=== PATIENT | male | born 1940 | race Caucasian/White ===

== ENCOUNTER 2021-12-25 00:36 | Inpatient (IN) | payer MEDICARE, SELFPAY ==
[2021-12-24 22:10] VITALS: BP 151/66; PULSE 84; RESP 18; TEMP 36.7; O2SAT 98
[2021-12-24 22:15] VITALS: BP 151/66; PULSE 84; RESP 18; TEMP 36.7; O2SAT 98; BMI 32.6
--- OUTSIDE RECORDS SUMMARY | 2021-12-24 22:33 | XMS_ITS | CCD ---
:1940 Author Care Team Providers Name Role Phone MONROE SHRESTHA Attending Physician Unavailable Vital Signs Unknown or Not Available. Allergies Allergy Code Allergy Type Reaction Status OXYCODONE 7804 Drug allergy URINARY RETENTION; Active DIFFICULTY URINATING No Known Environmental 0 No known environmental Active Allergies allergies No Known Food Allergies 0 No known food allergies Active Procedures Unknown or Not Available. History of Immunizations Immunization Code Date Hep A, adult 52 01/12/1999 Hep A, adult 52 09/13/1999 pneumococcal polysaccharide PPV23 33 2010 zoster live 121 11/28/2013 influenza, unspecified formulation 88 01/21 Pneumococcal conjugate PCV 13 133 03/09/2014 Tdap 115 12/07/2014 Tdap 115 12/07/2014 influenza, injectable, quadrivalent 158 12/0 05/2014 Influenza, high dose seasonal 135 01/18/2016 Influenza, high dose seasonal 135 01/05/2017 Influenza, high dose seasonal 135 01/30/2018 Influenza, high dose seasonal 135 02/03/2019 Influenza, high dose seasonal 135 01/27/2020 influenza, high-dose, quadrivalent 197 01/26 COVID-19, mRNA, LNP-S, PF, 100 mcg/0.5mL dose or 50 mcg/0.25 mL dose 207 05/24/2020 COVID-19, mRNA, LNP-S, PF, 100 mcg/0.5mL dose or 50 mcg/0.25 mL dose 207 06/21/2020 COVID-19, mRNA, LNP-S, PF, 100 mcg/0.5mL dose or 50 mcg/0.25 mL dose 207 02/24/2021 influenza, high-dose, quadrivalent 197 03/28 pneumococcal polysaccharide PPV23 33 Unknow n Influenza, seasonal, injectable 141 Unknown Problems Problem Code Start Date Resolved Trevor
--- OUTSIDE RECORDS SUMMARY | 2021-12-24 22:33 | XMS_ITS | CCD ---
:1940 Author Care Team Providers Name Role Phone ISABELLE LEIJA Attending Physician Unavailable Vital Signs Unknown or Not Available. Allergies Allergy Code Allergy Type Reaction Status OXYCODONE 7804 Drug allergy URINARY RETENTION; Active DIFFICULTY URINATING No Known Environmental 0 No known environmental Active Allergies allergies No Known Food Allergies 0 No known food allergies Active Procedures Procedure Code Procedure Type Date INJECT SACROILIAC JOINT 22650 CPT 01/25/20 Introduction of Anti-inflammatory into [id number] ICD-10 PC S 01/24/2021 Peripheral Nerves and Plexi, Percutaneous Approach History of Immunizations Immunization Code Date Hep [...] mcg/0.5mL dose or 50 mcg/0.25 mL dose 05/24/2020 COVID-19, mRNA, LNP-S, PF, 100 mcg/0.5mL dose or 50 mcg/0.25 mL dose 06/21/2020 COVID-19, mRNA, LNP-S, PF, 100 mcg/0.5mL dose or
--- OUTSIDE RECORDS SUMMARY | 2021-12-24 22:33 | XMS_ITS | CCD ---
:1940 Author Care Team Providers Name Role Phone FABIANLINMARTINE Attending Physician Unavailable Vital Signs Unknown or [...] mcg/0.5mL dose or 50 mcg/0.25 mL dose 02/24/2021 influenza, high-dose, quadrivalent 197 03/28 pneumococcal polysaccharide PPV23 33 Unknow n Influenza, seasonal, injectable 141 Unknown Problems Problem Code Start Date Resolved Trevor
--- OUTSIDE RECORDS SUMMARY | 2021-12-24 22:33 | XMS_ITS | CCD ---
:1940 Author Care Team Providers Name Role Phone ANTONELLA QUINN Attending Physician Unavailable ANTONELLA QUINN Er Physician 1 Unavailable CODY SUTTON (Secondary) Physician Unavailab le Vital Signs Unknown or Not Available. Allergies [...]
--- NOTE | 2021-12-24 22:34 | ADMGEN ---
This patient, Sina Mckeon, was admitted to [facility] Surg Room 327-01. Patient/family oriented to hospital policies and general routines including ID bracelet, bed and alarms, visiting hours, pain management, procedures, bathroom and other care routines, personal items, smoking policy, room service/diet, and visiting hours. Information on how to activate the Rapid Response Team has been discussed. Patient/Family are encouraged to report perceived risks to care and to ask questions if they do not understand what they are told or what they should do.
--- OUTSIDE RECORDS SUMMARY | 2021-12-24 22:34 | XMS_ITS | CCD ---
:1940 Author Care Team Providers Name Role Phone LUIS TAO Attending Physician Unavailable ANTONELLA QUINN Er Physician 1 Unavailable CODY SUTTON (Secondary) Physician Unavailab le Vital Signs Vital Sign Value Unit Date/Time Recent/Initial? BMI (Body Mass Index) 36.34 kg/m^2 07/26/2021 22:00 In itial VS Weight Measured 225.12 lbs 07/26/2021 22:00 Initial VS Height 66 in 07/26/2021 22:00 Initial VS BSA (Body Surface Area) 2.18 m^2 07/26/2021 22:00 Initial VS BP Systolic 138 mmHg 07/26/2021 22:00 Initial VS BP Diastolic 60 mmHg 07/26/2021 22:00 Initial VS Respiratory Rate 18 bpm 07/26/2021 22:00 Initial VS Heart Rate 77 bpm 07/26/2021 22:00 Initial VS O2 % BldC Oximetry 93 % 07/26/2021 22:00 Initi al VS Body Temperature 97.7 degrees 07/26/2021 22:00 Initial VS BP Systolic 140 mmHg 07/29/2021 10:11 Most Recent VS BP Diastolic 67 mmHg 07/29/2021 10:11 Most Recent VS Respiratory Rate 18 bpm 07/29/2021 10:11 Most Re cent VS Heart Rate 73 bpm 07/29/2021 10:11 Most Recent VS O2 % BldC Oximetry 95 % 07/29/2021 10:11 Most Recent VS Body Temperature 97.8 degrees 07/29/2021 10:11 Most Re cent VS Allergies Allergy Code Allergy Type Reaction Status OXYCODONE 7804 Drug allergy URINARY RETENTION; Active DIFFICULTY URINATING No Known Environmental 0 No known environmental Active Allergies allergies No Known Food Allergies 0 No known food allergies Active Procedures Procedure Code Procedure Type Date CBC W DIFF 9292457 SNOMED CT 07/26/2021 COMPREHENSIVE METABOLIC PANEL 376348683033683 SNOMED CT CULTURE BLOOD-PERIPHERAL 517463856 SNOMED CT 022 CULTURE BLOOD-PERIPHERAL 640869018 [facility] CT 022
--- OUTSIDE RECORDS SUMMARY | 2021-12-24 22:34 | XMS_ITS | CCD ---
:1940 Author Care Team Providers Name Role Phone VANNESSA RANGEL Attending Physician Unavailable Vital Signs Unknown or [...] Unknown Problems Problem Code Start Date Resolved Date
--- OUTSIDE RECORDS SUMMARY | 2021-12-24 22:34 | XMS_ITS | CCD ---
:1940 Author Care Team Providers Name Role Phone DWAINE SIDDIQI Attending Physician Unavailable Vital Signs Unknown or [...]
--- OUTSIDE RECORDS SUMMARY | 2021-12-24 22:34 | XMS_ITS | CCD ---
:1940 Author Care Team Providers Name Role Phone CODY SUTTON Attending Physician Unavailable Vital Signs Unknown or Not Available. Allergies Allergy Code Allergy Type Reaction Status OXYCODONE 7804 Drug allergy URINARY RETENTION; Active DIFFICULTY URINATING No Known Environmental 0 No known environmental Active Allergies allergies No Known Food Allergies 0 No known food allergies Active Procedures Procedure Code Procedure Type Date CHEST [address] 06/15/2021 History of Immunizations Immunization Code Date Hep [...] pneumococcal polysaccharide PPV23 33 Unknow n Influenza, seasonal
--- OUTSIDE RECORDS SUMMARY | 2021-12-24 22:34 | XMS_ITS | CCD ---
[...] Code Procedure Type Date CHEST [id number] 07/07/2021 History of Immunizations Immunization Code Date Hep [...] pneumococcal polysaccharide PPV23 33 Unknow n Influenza, seasona
--- OUTSIDE RECORDS SUMMARY | 2021-12-24 22:34 | XMS_ITS | CCD ---
:1940 Author Care Team Providers Name Role Phone LILIA RIVERO Attending Physician Unavailable Vital Signs Unknown or [...]
--- OUTSIDE RECORDS SUMMARY | 2021-12-24 22:34 | XMS_ITS | CCD ---
:1940 Author Care Team Providers Name Role Phone ANANTH BERGER Attending Physician Unavailable Vital Signs Unknown or [...]
--- OUTSIDE RECORDS SUMMARY | 2021-12-24 22:34 | XMS_ITS | CCD ---
:1940 Author Care Team Providers Name Role Phone ANTONELLA QUINN Attending Physician Unavailable CODY SUTTON (Secondary) Physician Unavailab le [...]
--- OUTSIDE RECORDS SUMMARY | 2021-12-24 22:34 | XMS_ITS | CCD ---
:1940 Author Care Team Providers Name Role Phone LUIS TAO Attending Physician Unavailable Vital Signs Vital Sign Value Unit Date/Time Recent/Initial? BMI (Body Mass Index) 39.96 kg/m^2 07/08/2021 15:27 In itial VS Weight Measured 247.56 lbs 07/08/2021 15:27 Initial VS Height 66 in 07/08/2021 15:27 Initial VS BSA (Body Surface Area) 2.29 m^2 07/08/2021 15:27 Initial VS BP Systolic 148 mmHg 07/08/2021 19:19 Initial VS BP Diastolic 72 mmHg 07/08/2021 19:19 Initial VS Respiratory Rate 20 bpm 07/08/2021 19:19 Initial VS Heart Rate 98 bpm 07/08/2021 19:19 Initial VS O2 % BldC Oximetry 96 % 07/08/2021 19:19 Initi al VS Body Temperature 98.4 degrees 07/08/2021 19:19 Initial VS BP Systolic 152 mmHg 07/09/2021 12:03 Most Recent VS BP Diastolic 76 mmHg 07/09/2021 12:03 Most Recent VS Respiratory Rate 18 bpm 07/09/2021 12:03 Most Re cent VS Heart Rate 83 bpm 07/09/2021 12:03 Most Recent VS O2 % BldC Oximetry 93 % 07/09/2021 12:03 Most Recent VS Body Temperature 98 degrees 07/09/2021 12:03 Most Re cent VS Allergies Allergy Code Allergy Type Reaction Status OXYCODONE 7804 Drug allergy URINARY RETENTION; Active DIFFICULTY URINATING No Known Environmental 0 No known environmental Active Allergies allergies No Known Food Allergies 0 No known food allergies Active Procedures Procedure Code Procedure Type Date PRP I/YAMILE INIT REDUC >5 YR 24905 CPT 06/15 ANESTH REPAIR OF HERNIA 77482 CPT 07/09/19 22 Supplement Right Inguinal Region with Synthetic [id number] ICD-10 PCS 07/08/2021 Substitute, Open Approach History of Immunizations Immunization Code Date Hep A, adult
--- OUTSIDE RECORDS SUMMARY | 2021-12-24 22:34 | XMS_ITS | CCD ---
:1940 Author Care Team Providers Name Role Phone JANES CEDILLO Attending Physician Unavailable Vital Signs Unknown or [...]
--- OUTSIDE RECORDS SUMMARY | 2021-12-24 22:35 | XMS_ITS | CCD ---
[...] Code Procedure Type Date CBC W DIFF 4606473 SNOMED CT 11/27/2021 COMPREHENSIVE METABOLIC PANEL [id number] SNOMED CT CULTURE BLOOD-PERIPHERAL 286155386 SNOMED CT 022 CULTURE BLOOD-PERIPHERAL 481745342 SNOMED CT 022 History of Immunizations Immunization Code Date Hep [...]
--- OUTSIDE RECORDS SUMMARY | 2021-12-24 22:35 | XMS_ITS | CCD ---
:1940 Author Care Team Providers Name Role Phone LOU PRINGLE Attending Physician Unavailable Vital Signs Unknown or [...]
--- OUTSIDE RECORDS SUMMARY | 2021-12-24 22:35 | XMS_ITS | CCD ---
:1940 Author Care Team Providers Name Role Phone TEGAN TITUS Attending Physician Unavailable TEGAN TITUS Er Physician 1 Unavailable CODY SUTTON (Secondary) [...]
--- OUTSIDE RECORDS SUMMARY | 2021-12-24 22:35 | XMS_ITS | CCD ---
:1940 Author Care Team Providers Name Role Phone VANE DALY Attending Physician Unavailable VANE DALY Er Physician 1 Unavailable CODY SUTTON (Secondary) [...]
--- OUTSIDE RECORDS SUMMARY | 2021-12-24 22:36 | XMS_ITS | CCD ---
:1940 Author Care Team Providers Name Role Phone ISABELLE LEIJA Attending Physician Unavailable ISABELLE LEIJA Rounding (Secondary) Physician Unavailab le Vital Signs Unknown [...]
--- OUTSIDE RECORDS SUMMARY | 2021-12-24 22:36 | XMS_ITS | CCD ---
:1940 Author Care Team Providers Name Role Phone CODY SUTTON Attending Physician Unavailable CODY SUTTON (Secondary) Physician Unavailab le Vital Signs Vital Sign Value Unit Date/Time Recent/Initial? BMI (Body Mass Index) 34.24 kg/m^2 12/13/2020 11:36 In itial VS Weight Measured 212 lbs 12/13/2020 11:36 Initial VS Height 65.98 in 12/13/2020 11:36 Initial VS BSA (Body Surface Area) 2.12 m^2 12/13/2020 11:36 Initial VS BP Systolic 136 mmHg 12/13/2020 11:36 Initial VS BP Diastolic 82 mmHg 12/13/2020 11:36 Initial VS Respiratory Rate 18 bpm 12/13/2020 11:36 Initial VS Heart Rate 87 bpm 12/13/2020 11:36 Initial VS O2 % BldC Oximetry 96 % 12/13/2020 11:36 Initi al VS Body Temperature 98 degrees 12/13/2020 11:36 Initial VS Allergies Allergy Code Allergy Type Reaction [...]
--- OUTSIDE RECORDS SUMMARY | 2021-12-24 22:36 | XMS_ITS | CCD ---
:1940 Author Care Team Providers Name Role Phone COYD SUTTON Attending Physician Unavailable CODY SUTTON (Secondary) [...]
--- OUTSIDE RECORDS SUMMARY | 2021-12-24 22:36 | XMS_ITS | CCD ---
:1940 Author Care Team Providers Name Role Phone KATARZYNA KIRAN Attending Physician Unavailable Vital Signs Unknown or [...]
--- OUTSIDE RECORDS SUMMARY | 2021-12-24 22:36 | XMS_ITS | CCD ---
:1940 Author Care Team Providers Name Role Phone CODY SUTTON Attending Physician Unavailable CODY SUTTON (Secondary) Physician Unavailab le Vital Signs Vital Sign Value Unit Date/Time Recent/Initial? BP Systolic 146 mmHg 04/13/2021 10:31 Initial VS BP Diastolic 66 mmHg 04/13/2021 10:31 Initial VS Respiratory Rate 18 bpm 04/13/2021 10:31 Initial VS Heart Rate 70 bpm 04/13/2021 10:31 Initial VS O2 % BldC Oximetry 95 % 04/13/2021 10:31 Initi al VS Body Temperature 99.1 degrees 04/13/2021 10:31 Initial VS Allergies Allergy Code Allergy Type [...] 197 01/26 COVID-19, mRNA, LNP-S, PF, 100 mcg/0
--- OUTSIDE RECORDS SUMMARY | 2021-12-24 22:36 | XMS_ITS | CCD ---
:1940 Author Care Team Providers Name Role Phone ISABELLE LEIJA Attending Physician Unavailable ISABELLE LEIJA Rounding (Secondary) Physician Unavailab le Vital Signs Vital Sign Value Unit Date/Time Recent/Initial? BMI (Body Mass Index) 33.89 kg/m^2 02/08/2021 11:03 In itial VS Weight Measured 210 lbs 02/08/2021 11:03 Initial VS Height 66 in 02/08/2021 11:03 Initial VS BSA (Body Surface Area) 2.11 m^2 02/08/2021 11:03 Initial VS BP Systolic 120 mmHg 02/08/2021 11:03 Initial VS BP Diastolic 60 mmHg 02/08/2021 11:03 Initial VS Respiratory Rate 16 bpm 02/08/2021 11:03 Initial VS Heart Rate 68 bpm 02/08/2021 11:03 Initial VS O2 % BldC Oximetry 96 % 02/08/2021 11:03 Initi al VS Body Temperature 96.4 degrees 02/08/2021 11:03 Initial VS Allergies Allergy Code Allergy Type [...] Influenza, high dose seasonal 135 01/05/2017 Influenza, hig
--- OUTSIDE RECORDS SUMMARY | 2021-12-24 22:36 | XMS_ITS | CCD ---
:1940 Author Care Team Providers Name Role Phone ISABELLE LEIJA Attending Physician Unavailable ISABELLE LEIJA Rounding (Secondary) Physician Unavailab le Vital Signs Vital Sign Value Unit Date/Time Recent/Initial? BMI (Body Mass Index) 34.86 kg/m^2 01/17/2021 08:52 In itial VS Weight Measured 216 lbs 01/17/2021 08:52 Initial VS Height 66 in 01/17/2021 08:52 Initial VS BSA (Body Surface Area) 2.14 m^2 01/17/2021 08:52 Initial VS BP Systolic 152 mmHg 01/17/2021 08:52 Initial VS BP Diastolic 60 mmHg 01/17/2021 08:52 Initial VS Respiratory Rate 20 bpm 01/17/2021 08:52 Initial VS Heart Rate 93 bpm 01/17/2021 08:52 Initial VS O2 % BldC Oximetry 93 % 01/17/2021 08:52 Initi al VS Body Temperature 97.5 degrees 01/17/2021 08:52 Initial VS Allergies Allergy Code Allergy Type [...]
--- OUTSIDE RECORDS SUMMARY | 2021-12-24 22:36 | XMS_ITS | CCD ---
:1940 Author Care Team Providers Name Role Phone CODY SUTTON Attending Physician Unavailable CODY SUTTON (Secondary) Physician Unavailab le Vital Signs Vital Sign Value Unit Date/Time Recent/Initial? BMI (Body Mass Index) 38.29 kg/m^2 06/15/2021 11:44 In itial VS Weight Measured 230.12 lbs 06/15/2021 11:44 Initial VS Height 65 in 06/15/2021 11:44 Initial VS BSA (Body Surface Area) 2.19 m^2 06/15/2021 11:44 Initial VS BP Systolic 148 mmHg 06/15/2021 11:44 Initial VS BP Diastolic 70 mmHg 06/15/2021 11:44 Initial VS Respiratory Rate 22 bpm 06/15/2021 11:44 Initial VS Heart Rate 72 bpm 06/15/2021 11:44 Initial VS O2 % BldC Oximetry 93 % 06/15/2021 11:44 Initi al VS Body Temperature 97.7 degrees 06/15/2021 11:44 Initial VS Allergies Allergy Code Allergy Type [...]
--- OUTSIDE RECORDS SUMMARY | 2021-12-24 22:36 | XMS_ITS | CCD ---
:1940 Author Care Team Providers Name Role Phone CODY SUTTON Attending Physician Unavailable CODY SUTTON (Secondary) Physician Unavailab le Vital Signs Vital Sign Value Unit Date/Time Recent/Initial? BMI (Body Mass Index) 36.48 kg/m^2 03/28/2021 14:29 In itial VS Weight Measured 226 lbs 03/28/2021 14:29 Initial VS Height 66 in 03/28/2021 14:29 Initial VS BSA (Body Surface Area) 2.18 m^2 03/28/2021 14:29 Initial VS BP Systolic 124 mmHg 03/28/2021 14:29 Initial VS BP Diastolic 66 mmHg 03/28/2021 14:29 Initial VS Respiratory Rate 26 bpm 03/28/2021 14:29 Initial VS Heart Rate 65 bpm 03/28/2021 14:29 Initial VS O2 % BldC Oximetry 93 % 03/28/2021 14:29 Initi al VS Body Temperature 97.7 degrees 03/28/2021 14:29 Initial VS Allergies Allergy Code Allergy Type [...]
--- OUTSIDE RECORDS SUMMARY | 2021-12-24 22:37 | XMS_ITS | CCD ---
:1940 Author Care Team Providers Name Role Phone LUIS TAO Attending Physician Unavailable LUIS TAO Rounding (Secondary) Physician Unavailab le Vital Signs [...]
--- OUTSIDE RECORDS SUMMARY | 2021-12-24 22:37 | XMS_ITS | CCD ---
:1940 Author Care Team Providers Name Role Phone CODY SUTTON Attending Physician Unavailable CODY SUTTON (Secondary) Physician Unavailab le Vital Signs Vital Sign Value Unit Date/Time Recent/Initial? BMI (Body Mass Index) 35.51 kg/m^2 08/02/2021 11:24 In itial VS Weight Measured 220 lbs 08/02/2021 11:24 Initial VS Height 66 in 08/02/2021 11:24 Initial VS BSA (Body Surface Area) 2.16 m^2 08/02/2021 11:24 Initial VS BP Systolic 144 mmHg 08/02/2021 11:24 Initial VS BP Diastolic 64 mmHg 08/02/2021 11:24 Initial VS Respiratory Rate 18 bpm 08/02/2021 11:24 Initial VS Heart Rate 67 bpm 08/02/2021 11:24 Initial VS O2 % BldC Oximetry 93 % 08/02/2021 11:24 Initi al VS Body Temperature 97.7 degrees 08/02/2021 11:24 Initial VS Allergies Allergy Code Allergy Type [...]
--- OUTSIDE RECORDS SUMMARY | 2021-12-24 22:37 | XMS_ITS | CCD ---
:1940 Author Care Team Providers Name Role Phone VANNESSA RANGEL Attending Physician Unavailable VANNESSA RANGEL Rounding (Secondary) Physician Unavailab le Vital Signs Vital Sign Value Unit Date/Time Recent/Initial? BMI (Body Mass Index) 38.27 kg/m^2 06/17/2021 14:51 In itial VS Weight Measured 230 lbs 06/17/2021 14:51 Initial VS Height 65 in 06/17/2021 14:51 Initial VS BSA (Body Surface Area) 2.19 m^2 06/17/2021 14:51 Initial VS BP Systolic 138 mmHg 06/17/2021 14:51 Initial VS BP Diastolic 72 mmHg 06/17/2021 14:51 Initial VS Respiratory Rate 20 bpm 06/17/2021 14:51 Initial VS Heart Rate 76 bpm 06/17/2021 14:51 Initial VS O2 % BldC Oximetry 95 % 06/17/2021 14:51 Initi al VS Body Temperature 98.1 degrees 06/17/2021 14:51 Initial VS Allergies Allergy Code Allergy Type [...]
--- OUTSIDE RECORDS SUMMARY | 2021-12-24 22:37 | XMS_ITS | CCD ---
:1940 Author Care Team Providers Name Role Phone CODY SUTTON Attending Physician Unavailable CODY SUTTON (Secondary) Physician Unavailab le Vital Signs Vital Sign Value Unit Date/Time Recent/Initial? BMI (Body Mass Index) 33.79 kg/m^2 08/29/2021 11:45 In itial VS Weight Measured 209.37 lbs 08/29/2021 11:45 Initial VS Height 66 in 08/29/2021 11:45 Initial VS BSA (Body Surface Area) 2.1 m^2 08/29/2021 11:45 Initial VS BP Systolic 118 mmHg 08/29/2021 11:45 Initial VS BP Diastolic 68 mmHg 08/29/2021 11:45 Initial VS Respiratory Rate 18 bpm 08/29/2021 11:45 Initial VS Heart Rate 66 bpm 08/29/2021 11:45 Initial VS O2 % BldC Oximetry 96 % 08/29/2021 11:45 Initi al VS Body Temperature 98 degrees 08/29/2021 11:45 Initial VS Allergies Allergy Code Allergy Type [...]
--- OUTSIDE RECORDS SUMMARY | 2021-12-24 22:37 | XMS_ITS | CCD ---
:1940 Author Care Team Providers Name Role Phone CODY SUTTON Attending Physician Unavailable CODY SUTTON (Secondary) Physician Unavailab le Vital Signs Vital Sign Value Unit Date/Time Recent/Initial? BMI (Body Mass Index) 36.64 kg/m^2 06/21/2021 12:10 In itial VS Weight Measured 227 lbs 06/21/2021 12:10 Initial VS Height 66 in 06/21/2021 12:10 Initial VS BSA (Body Surface Area) 2.19 m^2 06/21/2021 12:10 Initial VS BP Systolic 130 mmHg 06/21/2021 12:10 Initial VS BP Diastolic 78 mmHg 06/21/2021 12:10 Initial VS Heart Rate 65 bpm 06/21/2021 12:10 Initial VS O2 % BldC Oximetry 95 % 06/21/2021 12:10 Initi al VS Body Temperature 97.8 degrees 06/21/2021 12:10 Initial VS Allergies Allergy Code Allergy Type [...] dose seasonal 135 01/30/2018 Influenza, high dose se
--- OUTSIDE RECORDS SUMMARY | 2021-12-24 22:38 | XMS_ITS | CCD ---
:1940 Author Care Team Providers Name Role Phone LOU PRINGLE Attending Physician Unavailable LOU PRINGLE Rounding (Secondary) Physician Unavailab le Vital Signs Vital Sign Value Unit Date/Time Recent/Initial? BMI (Body Mass Index) 35.04 kg/m^2 10/14/2020 10:39 In itial VS Weight Measured 217.12 lbs 10/14/2020 10:39 Initial VS Height 66 in 10/14/2020 10:39 Initial VS BSA (Body Surface Area) 2.14 m^2 10/14/2020 10:39 Initial VS BP Systolic 140 mmHg 10/14/2020 10:39 Initial VS BP Diastolic 62 mmHg 10/14/2020 10:39 Initial VS Respiratory Rate 20 bpm 10/14/2020 10:39 Initial VS Heart Rate 58 bpm 10/14/2020 10:39 Initial VS O2 % BldC Oximetry 96 % 10/14/2020 10:39 Initi al VS Body Temperature 97.7 degrees 10/14/2020 10:39 Initial VS Allergies Allergy Code Allergy Type [...]
--- OUTSIDE RECORDS SUMMARY | 2021-12-24 22:38 | XMS_ITS | CCD ---
:1940 Author Care Team Providers Name Role Phone COYD SUTTON Attending Physician Unavailable CODY SUTTON (Secondary) Physician Unavailab le Vital Signs Vital Sign Value Unit Date/Time Recent/Initial? BMI (Body Mass Index) 32.95 kg/m^2 12/16/2021 10:56 In itial VS Weight Measured 204.12 lbs 12/16/2021 10:56 Initial VS Height 66 in 12/16/2021 10:56 Initial VS BSA (Body Surface Area) 2.08 m^2 12/16/2021 10:56 Initial VS BP Systolic 162 mmHg 12/16/2021 10:56 Initial VS BP Diastolic 70 mmHg 12/16/2021 10:56 Initial VS Respiratory Rate 22 bpm 12/16/2021 10:56 Initial VS Heart Rate 63 bpm 12/16/2021 10:56 Initial VS O2 % BldC Oximetry 96 % 12/16/2021 10:56 Initi al VS Body Temperature 97.8 degrees 12/16/2021 10:56 Initial VS Allergies Allergy Code Allergy Type [...]
--- NOTE | ~2021-12-25 | MR_ITS ---
EXAMINATION: MR lumbar spine wo con DATE: 12/26/2021 12:56 INDICATION: Acute weakness. Inability to ambulate. TECHNIQUE: Magnetic resonance imaging (MRI) of the lumbar spine was performed without intravenous con trast. Sequences included sagittal T2-weighted FSE, sagittal T2-weighted FS FSE, sagittal T1-weighted FSE, and axial T2-weighted FSE. COMPARISON: Thoracolumbar radiographs 12/26/2021 FINDINGS: There is 4 degrees levocurvature of lumbar spine. There is 4 mm retrolisthesis of L2 on L3. There is mild chronic anterior wedging of T11 and T12 vertebral bodies. There is a hemangioma in T12 vertebral body. There is severely decreased disc height from L1-L2 through L5-S1 with endplate remod eling. The distal spinal cord signal intensity is normal. The conus medullaris is at L1. The followin g disc levels are specifically discussed: L1-L2: The disc is bulging and has an annular fissure. There is severe bilateral facet joint osteoart hritis. There is moderate right and severe left neural foraminal stenosis. There is mild central kaylan l stenosis with posterior decompression. L2-L3: The disc is bulging and has an annular fissure. There is severe bilateral facet joint osteoart hritis. There is moderate bilateral neural foraminal stenosis. There is mild central canal stenosis w ith posterior decompression. L3-L4: The disc is bulging and has an annular fissure. There is severe bilateral facet joint osteoart hritis. There is moderate bilateral neural foraminal stenosis. There is mild central canal stenosis w ith posterior decompression. There is severe stenosis of left lateral recess. L4-L5: The disc is bulging and has an annular fissure. There is severe bilateral facet joint osteoart hritis. There is severe bilateral neural foraminal stenosis. There is mild central canal stenosis wit h posterior decompression. There is severe stenosis of right lateral recess and moderate stenosis of left lateral recess. L5-S1: The disc is bulging and has an annular fissure. There is severe bilateral facet joint osteoart hritis. There is moderate bilateral neural foraminal stenosis. There is moderate central canal stenos is. There is severe stenosis of left lateral recess. IMPRESSION: 1. Severe lumbar spondylosis. Reviewed, dictated and finalized at location A.
--- NOTE | ~2021-12-25 | XR_ITS ---
XR chest 2V DATE: 12/25/2021 09:01 INDICATION: Shortness of breath TECHNIQUE: AP and lateral views COMPARISON: None FINDINGS: Cardiomegaly. Thoracic and abdominal aortic calcification. Lungs are moderately hyperinflated. No pulmonary infiltrate or consolidation, pleural effusion or pul monary vascular congestion or pneumothorax. Osteopenia. Degenerative spurring and dextroscoliosis of the thoracic spine. Status post surgical spi ne surgical fusion. IMPRESSION: Cardiomegaly, aortic atherosclerosis No active pulmonary disease Bilateral hyperinflation, suggesting possible COPD. The elderly chest however considerably this appea devonte. Reviewed, dictated and finalized at location A. IMPRESSION: Cardiomegaly, aortic atherosclerosis No active pulmonary disease Bilateral hyperinflation, suggesting possible COPD. The elderly chest however c onsiderably this appearance.
--- NOTE | ~2021-12-25 | XR_ITS ---
EXAMINATION: XR thoracolumbar DATE: 12/26/2021 09:45 INDICATION: Mid back pain. TECHNIQUE: 2 views of the thoracic and lumbar spine on 3 radiographs were obtained. COMPARISON: Chest 2 views 12/25/2021 FINDINGS: The superior thoracic spine is excluded. There is 6 degrees levocurvature of lumbar spine. There is mild chronic anterior wedging of multiple lower thoracic vertebral bodies. There is moderate ly decreased disc height at T11-T12, mildly decreased disc height at T12-L1, and severely decreased d isc height from L1-L2 through L5-S1 with endplate remodeling. IMPRESSION: 1. Severe lumbar spondylosis and moderate thoracic spondylosis. Reviewed, dictated and finalized at location A.
--- NOTE | 2021-12-25 00:47 | PM.IMHP ---
H&P: HPI History of Present Illness Date/Time: 12/25/21 00:47 Chief Complaint: bilateral lower extremity weakness Narrative: This is an 81-year-old male with past medical history significant for spinal stenosis, stimulator implantation in the spine, chronic back pain, neurogenic claudication, patient presents to outside hospital due to worsening bilateral lower extremity weakness patient is now unable to get up from sitting position and unable to ambulate due to bilateral lower extremity weakness, with tingling, and pain radiating bilaterally down to his feet, patient has been having problems also with voiding urine trouble initiating stream. PATIENT HAD ALREADY SCHEDULE APPOINTMENT FOR FOLLOW-UP WITH HIS NEUROSURGEON. preliminary workup has been essentially nonrevealing chemistry panel and complete blood count. has been transferred to our facility for further evaluation management and treatment. Review of Systems Review of Systems: patient with longstanding neurogenic claudication status post spinal nerve stimulator implantation presents to outside emergency room due to bilateral lower extremity weakness lower back pain on shooting pain down to his legs with tingling of bilateral lower extremities can not get up from sitting position or ambulate Constitutional: Comments: Bilateral lower extremity weakness, tingling, back pain with radiation bilaterally down to his legs PMFSH Past Medical History Medical History (Updated 12/25/21 @ 04:59 by Giancarlo Hopkins MD) Cataract Congestive heart disease Hypertension Surgical History Surgical History H/O vasectomy Family History Family History (Updated 12/24/21 @ 22:45 by Sloane Cooper RN) Mother Cancer Father Emphysema lung Social History Social History Smoking packs per day: 3 Smoking cigarettes per day: 60.0 Years smoked: 24 Smoking pack-years: 72.00 Smoking status: Former smoker Smoking end date: 12/25/83 Alcohol intake: current Drinks per week: 3 Substance use: never Substance use type: does not use Spiritual care concerns: No Meds Home Medications and Allergies Home Medications Medication Instructions Recorded Confirmed Type alfuzosin 10 mg tablet,extended 10 mg PO DAILY 10/24/21 12/24/21 History release 24 hr amlodipine 5 mg tablet 5 mg PO DAILY 10/24/21 12/24/21 History atorvastatin 20 mg tablet 20 mg PO DAILY 10/24/21 12/24/21 History finasteride 5 mg tablet 5 mg PO DAILY 10/24/21 12/24/21 History folic acid 1 mg tablet 1 mg PO DAILY 10/24/21 12/24/21 History hydrocodone 7.5 mg-acetaminophen 1 tablet PO Q6H PRN Pain 10/24/21 12/24/21 History 300 mg tablet potassium citrate 10 mEq (1,080 10 meq PO DAILY 10/24/21 12/24/21 History mg) tablet,extended release pramipexole 0.5 mg tablet 0.5 mg PO BID 10/24/21 12/24/21 History bumetanide 1 mg tablet 1 mg PO PRN PRN Edema 12/24/21 12/24/21 History lisinopril 20 mg tablet 40 mg PO DAILY 12/24/21 12/24/21 History metoprolol succinate 25 mg 25 mg PO DAILY 12/24/21 12/24/21 History tablet,extended release 24 hr Allergies Allergy/AdvReac Type Severity Reaction Status Date / Time No Known Drug Allergies AdvReac none Verified 10/24/21 08:36 Vital Signs Vital Signs - 24 hr 12/24/21 22:15 12/24/21 23:24 Temperature 98.1 F Pulse Rate 84 Respiratory Rate 18 Blood Pressure 151/66 H Pulse Oximetry 98 Oxygen Delivery Room Air Exam Narrative: patient is laying in a stretcher Const: General: comfortable, no acute distress, well developed, alert and awake Nutritional Appearance: average body habitus Orientation/consciousness: patient oriented x3 HENMT: Head: normal to inspection, normocephalic and atraumatic Ears: hearing grossly normal bilaterally Face and sinus: normal facial exam Eyes: General: appearance normal, both eyes and
[2021-12-25 01:55] LABS: Basophils Percent Auto 0.4 % (0.2-1.2); Eosinophils Absolute Auto 0.3 K/mm3 (0-0.3); Eosinophils Percent Auto 2.8 % (0-4.4); Hematocrit 51.8 % (42.0-52.0); Immature Granulocyte Absolute 0.03 K/mm3 (0.00-0.031); Immature Granulocyte Percent A 0.3 % (0-0.5); Lymphocytes Absolute Auto 1.76 K/mm3 (0.9-3.2); Lymphocytes Percent Auto 17.8 % (18.3-44.2); Mean Corpuscular HGB Conc 32.8 g/dl (32-36); Mean Corpuscular Hemoglobin 31.3 pg (26-34); Mean Corpuscular Volume 95.2 fl (80-100); Mean Platelet Volume 8.8 fl (7.4-10.4); Monocytes Absolute Auto 0.7 K/mm3 (0.1-0.6); Monocytes Percent Auto 7.4 % (2.6-8.5); Neutrophils Absolute Auto 7.1 K/mm3 (1.3-6.7); Neutrophils Percent Auto 71.3 % (45.5-73.1); Platelet Count Result 169 k/mm3 (150-375); Red Blood Count 5.44 M/mm3 (4.6-6.20); Red Cell Distribution Width 13.3 % (11.5-14.5); White Blood Count 9.9 K/mm3 (4.5-10.0)
[2021-12-25 02:04] LABS: Anion Gap 9 mmol/L (8-16); Blood Urea Nitrogen 17 mg/dL (9-20); Calcium 8.7 mg/dL (8.4-10.2); Carbon Dioxide 23 mmol/L (22-30); Chloride 106 mmol/L (98-107); Estimated CRCL calculation 61 ml/min; Estimated Glomerular Filt Rate > 60; Glucose 103 mg/dL (65-110); Potassium 3.9 mmol/L (3.4-5.0); Sodium 138 mmol/L (137-145)
[2021-12-25 06:21] VITALS: BP 150/62; PULSE 75; RESP 18; TEMP 36.8; O2SAT 97
[2021-12-25] MEDS: lisinopriL 20 MG TABLET 40 MG PO (09:12)
[2021-12-25] MEDS: ACETAMINOPHEN 325 MG TABLET 650 MG PO ×2 (09:12→14:32)
[2021-12-25] MEDS: amLODIPine BESYLATE 5 MG TABLET PO (09:13)
[2021-12-25] MEDS: FINASTERIDE 5 MG TABLET PO (09:13)
[2021-12-25] MEDS: ENOXAPARIN 40 MG/0.4 ML SYRINGE SUB-Q (09:14)
[2021-12-25] MEDS: FOLIC ACID 1 MG TABLET PO (09:14)
[2021-12-25] MEDS: PRAMIPEXOLE 0.5 MG TABLET PO ×2 (09:14→17:03)
[2021-12-25] MEDS: POTASSIUM CITRATE 5 MEQ TAB CR 10 MEQ PO (09:14)
[2021-12-25] MEDS: ATORVASTATIN 20 MG TABLET PO (09:14)
[2021-12-25 10:23] VITALS: PULSE 75
[2021-12-25] MEDS: METOPROLOL SUCCINATE EXT REL 25 MG TABCR PO (10:23)
[2021-12-25 13:35] VITALS: BP 108/51; PULSE 66; RESP 16; TEMP 36.3; O2SAT 96
--- NOTE | 2021-12-25 17:33 | WPDNEUROSGCN ---
Assessment and Plan Assessment and plan (1) Leg weakness: Code(s): R29.898 - Other symptoms and signs involving the musculoskeletal system Status: Acute Plan Sina is an 81-year-old gentleman with lower extremity weakness and pain in his back and lower extremities. He is unclear about whether not his new weaknesses related to pain or not. His last scans do not demonstrate a problem that would be consistent with this distribution of neurologic difficulty in his legs and therefore we will order a new MRI of lumbar spine. Once we have seen as study we will make him aware of the results make further recommendations. Review of Systems Review of Systems: Negative for shortness of breath, cough, fever, chills, nausea, vomiting, weight loss, weight gain, chest pain. He has back and leg pain. His review of systems is otherwise negative. [facility] Past Medical History Medical History Cataract Congestive heart disease Hypertension Surgical History Surgical History H/O vasectomy Family History Family History Mother Cancer Father Emphysema lung Social History Social History Smoking packs per day: 3 Smoking cigarettes per day: 60.0 Years smoked: 24 Smoking pack-years: 72.00 Smoking status: Former smoker Smoking end date: 12/25/83 Alcohol intake: current Drinks per week: 3 Substance use: never Substance use type: does not use Spiritual care concerns: No Meds Home Medications and Allergies Home Medications Medication Instructions Recorded Confirmed Type alfuzosin 10 mg tablet,extended 10 mg PO DAILY 10/24/21 12/24/21 History release 24 hr amlodipine 5 mg tablet 5 mg PO DAILY 10/24/21 12/24/21 History atorvastatin 20 mg tablet 20 mg PO DAILY 10/24/21 12/24/21 History finasteride 5 mg tablet 5 mg PO DAILY 10/24/21 12/24/21 History folic acid 1 mg tablet 1 mg PO DAILY 10/24/21 12/24/21 History hydrocodone 7.5 mg-acetaminophen 1 tablet PO Q6H PRN Pain 10/24/21 12/24/21 History 300 mg tablet potassium citrate 10 mEq (1,080 10 meq PO DAILY 10/24/21 12/24/21 History mg) tablet,extended release pramipexole 0.5 mg tablet 0.5 mg PO BID 10/24/21 12/24/21 History bumetanide 1 mg tablet 1 mg PO PRN PRN Edema 12/24/21 12/24/21 History lisinopril 20 mg tablet 40 mg PO DAILY 12/24/21 12/24/21 History metoprolol succinate 25 mg 25 mg PO DAILY 12/24/21 12/24/21 History tablet,extended release 24 hr Allergies Allergy/AdvReac Type Severity Reaction Status Date / Time No Known Drug Allergies AdvReac none Verified 10/24/21 08:36 Vital Signs Vital Signs - 24 hr 12/24/21 22:15 12/24/21 23:24 12/24/21 22:10 Temperature 98.1 F 98.1 F Pulse Rate 84 84 Respiratory Rate 18 18 Blood Pressure 151/66 H 151/66 H Pulse Oximetry 98 98 Oxygen Delivery Room Air 12/25/21 06:21 12/25/21 10:23 12/25/21 08:00 Temperature 98.2 F Pulse Rate 75 75 Respiratory Rate 18 Blood Pressure 150/62 H Pulse Oximetry 97 Oxygen Delivery Room Air 12/25/21 13:35 Temperature 97.4 F L Pulse Rate 66 Respiratory Rate 16 Blood Pressure 108/51 L Pulse Oximetry 96 Oxygen Delivery Exam Neuro: Other: Patient is an elderly male supine on the hospital bed no acute distress. He is awake, alert, oriented x3, with good fund of knowledge, recall of events and fluent speech. His face is symmetrical, tongue is midline, his pupils are equal reactive, his extraocular movements are intact. He has no upper extremity drift, dysmetria or dyspraxia. He is not able to lift his legs at the hips against gravity without assistance. He has 4-5 strength in his quadriceps bilaterally. He has 5/5 strength in the bilateral dorsi and plantar flexors. Sensation is intact to l
[2021-12-25 20:00] VITALS: O2SAT 96
[2021-12-25] MEDS: HYDROcodone/acetaminophen (*CRX) 7.5-325 MG TABLET 1 TAB PO (20:31)
[2021-12-26] VITALS: BP 129/57; PULSE 63; RESP 18; TEMP 36.6; O2SAT 98
[2021-12-26 06:08] VITALS: BP 158/77; PULSE 64; RESP 18; TEMP 36.7; O2SAT 94
--- NOTE | 2021-12-26 07:35 | PC.NURSE ---
call to MRI to review questionaire for possible scan today
[2021-12-26 08:44] VITALS: PULSE 68
[2021-12-26] MEDS: amLODIPine BESYLATE 5 MG TABLET PO (08:44)
[2021-12-26] MEDS: PRAMIPEXOLE 0.5 MG TABLET PO ×2 (08:44→17:25)
[2021-12-26] MEDS: POTASSIUM CITRATE 5 MEQ TAB CR 10 MEQ PO (08:44)
[2021-12-26] MEDS: METOPROLOL SUCCINATE EXT REL 25 MG TABCR PO (08:44)
[2021-12-26] MEDS: ENOXAPARIN 40 MG/0.4 ML SYRINGE SUB-Q (08:44)
[2021-12-26] MEDS: lisinopriL 20 MG TABLET 40 MG PO (08:44)
[2021-12-26] MEDS: FOLIC ACID 1 MG TABLET PO (08:44)
[2021-12-26] MEDS: ATORVASTATIN 20 MG TABLET PO (08:44)
[2021-12-26] MEDS: ACETAMINOPHEN 325 MG TABLET 650 MG PO (08:49)
--- NOTE | 2021-12-26 09:25 | PC.NURSE ---
pt to radiology via stretcher for x-ray
--- NOTE | 2021-12-26 10:48 | PM.IMPN ---
Progress Note: A&P Assessment and Plan (1) Lumbar stenosis: Code(s): M48.061 - Spinal stenosis, lumbar region without neurogenic claudication Status: Acute Assessment and Plan: x-ray performed today. MRI also pending. Appreciate neurosurgical evaluation. (2) Weakness of both lower extremities: Code(s): R29.898 - Other symptoms and signs involving the musculoskeletal system Status: Acute Assessment and Plan: Will await MRI, And neuro surgical evaluation as well. 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 Still having significant weakness. Plan for MRI today Exam Narrative: patient is laying in a stretcher Const: General: comfortable, no acute distress, well developed, alert and awake Nutritional Appearance: average body habitus Orientation/consciousness: patient oriented x3 HENMT: Head: normal to inspection, normocephalic and atraumatic Ears: hearing grossly normal bilaterally Face and sinus: normal facial exam Eyes: General: appearance normal, both eyes and all related structures Pupils: Equal, round and reactive pupils present EOM: EOMs intact bilaterally Neck: Neck: full ROM, no lymphadenopathy and no JVD Thyroid: thyroid normal Lymphatic: no lymphadenopathy noted Resp: Effort & Inspection: normal respiratory effort and able to speak in complete sentences Auscultation: clear to auscultation bilaterally Cardio: Jugular venous distension: no JVD Rate: regular rate Rhythm: regular rhythm Heart sounds: S1 normal heart sound present and S2 normal heart sound present : General: Yes deferred Skin: Rashes: no rashes Wounds: no wounds Neuro: General: patient oriented x3, CN's II-XI intact bilaterally and Unable to assess gait Cranial nerves: Yes CN's II-XII intact bilaterally and Yes Equal, round and reactive pupils present Cognition (Neuro): normal cognition Speech: normal speech Gait exam (Neuro): Unable to assess gait Motor exam (neuro): 5/5 motor strength present throughout Extrem: General: normal to inspection, full ROM, no joint enlargement, no pedal edema and muscle atrophy of the right lower extremity and of the left lower extremity Objective Data Vital Signs Vital Signs: Vital Signs - 24 hr 12/25/21 13:35 12/25/21 20:00 12/26/21 00:00 Temperature 97.4 F L 97.8 F Pulse Rate 66 63 Respiratory Rate 16 18 Blood Pressure 108/51 L 129/57 L Pulse Oximetry 96 96 98 Oxygen Delivery Room Air 12/26/21 06:08 12/26/21 08:44 Temperature 98.0 F Pulse Rate 64 68 Respiratory Rate 18 Blood Pressure 158/77 H Pulse Oximetry 94 Oxygen Delivery Intake/Output Intake/Output: Intake & Output 12/23/21 12/24/21 12/25/21 12/26/21 23:59 23:59 23:59 23:59 Intake Total 1570 920 Output Total 750 850 Balance 820 70 Meds/Results Medications: Active Medications Generic Name Dose Route Start Last Admin Trade Name Freq PRN Reason Stop Dose Admin Acetaminophen 650 mg 12/25/21 00:36 12/26/21 08:49 Acetaminophen 325 Mg Tablet PO 650 mg Q4H PRN Administration Mild Pain (1-3) or Fever Hydrocodone Bitart/Acetaminophen 1 tab 12/25/21 00:36 12/25/21 20:31 Hydrocodone/Acetaminophen (*Crx) 7.5-325 Mg Tablet PO 1 tab Q6H PRN Administration Pain Rated 4-6 Al Hydrox/Mg Hydrox/Simethicon
[2021-12-26] MEDS: FINASTERIDE 5 MG TABLET PO (11:59)
[2021-12-26 14:00] VITALS: BP 130/73; PULSE 69; RESP 16; TEMP 36.5; O2SAT 96
[2021-12-26 21:54] VITALS: BP 113/48; PULSE 63; RESP 14; TEMP 36.6; O2SAT 94
--- NOTE | 2021-12-27 00:24 | PC.NURSE ---
Pt had [facility] at the beginning of the shift. Pt is upset that Dr. amezcua did not come to explain the results of the tests he has had so far. Pt states his family is also upset that he doesn't have any answers. Pt was educated that the Dr will be in at his earliest available time. Pt verbalizes understanding. Will continue to monitor pt.
[2021-12-27 03:15] VITALS: BP 153/66; PULSE 70; RESP 18; TEMP 36.6; O2SAT 97
[2021-12-27] MEDS: HYDROcodone/acetaminophen (*CRX) 7.5-325 MG TABLET 1 TAB PO (04:37)
[2021-12-27] MEDS: amLODIPine BESYLATE 5 MG TABLET PO (08:37)
[2021-12-27] MEDS: FOLIC ACID 1 MG TABLET PO (08:37)
[2021-12-27] MEDS: ENOXAPARIN 40 MG/0.4 ML SYRINGE SUB-Q (08:37)
[2021-12-27] MEDS: FINASTERIDE 5 MG TABLET PO (08:37)
[2021-12-27] MEDS: ATORVASTATIN 20 MG TABLET PO (08:37)
[2021-12-27] MEDS: PRAMIPEXOLE 0.5 MG TABLET PO ×2 (08:38→16:38)
[2021-12-27] MEDS: POTASSIUM CITRATE 5 MEQ TAB CR 10 MEQ PO (08:38)
[2021-12-27] MEDS: lisinopriL 20 MG TABLET 40 MG PO (08:38)
[2021-12-27 08:39] VITALS: PULSE 88
[2021-12-27] MEDS: METOPROLOL SUCCINATE EXT REL 25 MG TABCR PO (08:39)
--- NOTE | 2021-12-27 10:35 | PM.IMPN ---
Progress Note: A&P Assessment and Plan (1) Lumbar stenosis: Code(s): M48.061 - Spinal stenosis, lumbar region without neurogenic claudication Status: Acute Assessment and Plan: x-ray and MRI reviewed Appreciate neurosurgical evaluation. await plan from neurosurgeon. (2) Weakness of both lower extremities: Code(s): R29.898 - Other symptoms and signs involving the musculoskeletal system Status: Acute Assessment and Plan: MRI noted. 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 Status: Acute (5) Hypertension: Code(s): I10 - Essential (primary) hypertension Status: Acute Assessment and Plan: monitor (6) Gait disturbance: Code(s): R26.9 - Unspecified abnormalities of gait and mobility Status: Acute Assessment and Plan: see plan above (7) Urinary retention: Code(s): R33.9 - Retention of urine, unspecified Status: Acute Subjective Date/time seen: 12/27/21 10:35 reports pain and weakness is a little better Exam Narrative: patient is laying in a stretcher Const: General: comfortable, no acute distress, well developed, alert and awake Nutritional Appearance: average body habitus Orientation/consciousness: patient oriented x3 HENMT: Head: normal to inspection, normocephalic and atraumatic Ears: hearing grossly normal bilaterally Face and sinus: normal facial exam Eyes: General: appearance normal, both eyes and all related structures Pupils: Equal, round and reactive pupils present EOM: EOMs intact bilaterally Neck: Neck: full ROM, no lymphadenopathy and no JVD Thyroid: thyroid normal Lymphatic: no lymphadenopathy noted Resp: Effort & Inspection: normal respiratory effort and able to speak in complete sentences Auscultation: clear to auscultation bilaterally Cardio: Jugular venous distension: no JVD Rate: regular rate Rhythm: regular rhythm Heart sounds: S1 normal heart sound present and S2 normal heart sound present : General: Yes deferred Skin: Rashes: no rashes Wounds: no wounds Neuro: General: patient oriented x3, CN's II-XI intact bilaterally and Unable to assess gait Cranial nerves: Yes CN's II-XII intact bilaterally and Yes Equal, round and reactive pupils present Cognition (Neuro): normal cognition Speech: normal speech Gait exam (Neuro): Unable to assess gait Motor exam (neuro): 5/5 motor strength present throughout Extrem: General: normal to inspection, full ROM, no joint enlargement, no pedal edema and muscle atrophy of the right lower extremity and of the left lower extremity Objective Data Vital Signs Vital Signs: Vital Signs - 24 hr 12/26/21 14:00 12/26/21 20:00 12/26/21 21:54 Temperature 97.7 F 97.8 F Pulse Rate 69 63 Respiratory Rate 16 14 Blood Pressure 130/73 113/48 L Pulse Oximetry 96 94 Oxygen Delivery Room Air 12/27/21 03:15 12/27/21 08:39 Temperature 97.8 F Pulse Rate 70 88 Respiratory Rate 18 Blood Pressure 153/66 H Pulse Oximetry 97 Oxygen Delivery Intake/Output Intake/Output: Intake & Output 12/24/21 12/25/21 12/26/21 12/27/21 23:59 23:59 23:59 23:59 Intake Total 1570 1700 Output Total 750 2050 900 Balance 820 -350 -900 Meds/Results Medications: Active Medications Generic Name Dose Route Start Last Admin Trade Name Freq PRN Reason Stop Dose Admin Acetaminophen 650 mg 12/25/21 00:36 12/26/21 08:49 Acetaminophen 325 Mg Tablet PO 650 mg Q4H PRN Administration Mild Pain (1-3) or Fever Hydrocodone Bitart/Acetaminophen 1 tab 12/25/21 00:36 12/27/21 04:37 Hydrocodone/Acetaminophen (*Crx) 7.5-325 Mg Tablet PO 1 tab Q6H PRN Administration Pain Rated 4-6 Al Hydrox/Mg Hydrox/Simethicone 30 ml 12/25/21 00:36 Mag Hydrox/Al Hydrox/Simeth 30
[2021-12-27 14:00] VITALS: BP 138/52; PULSE 70; RESP 16; TEMP 36.7; O2SAT 95
[2021-12-27 21:34] VITALS: BP 146/50; PULSE 68; RESP 16; TEMP 36.9; O2SAT 97
--- NOTE | 2021-12-28 03:53 | PC.NURSE ---
Pt resting in bed. Pt has been up for the majority of the evening watching tv and playing on his tablet, dozing off occasionally. Pt states he does not require much sleep. Pt has no complaints of pain at this time. Will continue to monitor pt.
[2021-12-28 05:29] VITALS: BP 151/66; PULSE 79; RESP 16; TEMP 36.6; O2SAT 93
[2021-12-28] MEDS: ACETAMINOPHEN 325 MG TABLET 650 MG PO (09:15)
[2021-12-28] MEDS: ENOXAPARIN 40 MG/0.4 ML SYRINGE SUB-Q (09:17)
[2021-12-28] MEDS: FINASTERIDE 5 MG TABLET PO (09:17)
[2021-12-28] MEDS: amLODIPine BESYLATE 5 MG TABLET PO (09:17)
[2021-12-28] MEDS: ATORVASTATIN 20 MG TABLET PO (09:17)
[2021-12-28] MEDS: POTASSIUM CITRATE 5 MEQ TAB CR 10 MEQ PO (09:18)
[2021-12-28] MEDS: PRAMIPEXOLE 0.5 MG TABLET PO ×2 (09:18→17:13)
[2021-12-28] MEDS: lisinopriL 20 MG TABLET 40 MG PO (09:18)
[2021-12-28] MEDS: FOLIC ACID 1 MG TABLET PO (09:18)
[2021-12-28 09:22] VITALS: PULSE 74
[2021-12-28] MEDS: METOPROLOL SUCCINATE EXT REL 25 MG TABCR PO (09:22)
--- NOTE | 2021-12-28 13:18 | PM.IMPN ---
Progress Note: A&P Assessment and Plan (1) Lumbar stenosis: Code(s): M48.061 - Spinal stenosis, lumbar region without neurogenic claudication Status: Acute Assessment and Plan: x-ray and MRI reviewed Appreciate neurosurgical evaluation. await plan from neurosurgeon. 12/28/2021 interval history patient continue to complain of low back pain, MRI of lumbar spine showed severe lumbar spondylosis, patient does have control over bowel and does complain of weakness in the lower extremity patient be seen by spine surgeon and further recommendation to follow. (2) Weakness of both lower extremities: Code(s): R29.898 - Other symptoms and signs involving the musculoskeletal system Status: Acute Assessment and Plan: MRI noted. 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 Status: Acute (5) Hypertension: Code(s): I10 - Essential (primary) hypertension Status: Acute Assessment and Plan: monitor (6) Gait disturbance: Code(s): R26.9 - Unspecified abnormalities of gait and mobility Status: Acute Assessment and Plan: see plan above (7) Urinary retention: Code(s): R33.9 - Retention of urine, unspecified Status: Acute Subjective Date/time seen: 12/28/21 13:18 Interval history: 12/28/2021 interval history patient continue to complain of low back pain, MRI of lumbar spine showed severe lumbar spondylosis, patient does have control over bowel and does complain of weakness in the lower extremity patient be seen by spine surgeon and further recommendation to follow. Review of Systems Review of Systems: Negative for shortness of breath, cough, fever, chills, nausea, vomiting, weight loss, weight gain, chest pain. He has back and leg pain. His review of systems is otherwise negative. Exam Narrative: moderately obese Patient is comfortable, NAD HEENT: eyes are clear and none icteric LUNGS: normal respiratory effort ABD: distended Lower extremities: no edema SKIN: nonjaundiced Neuro: grossly intact. Objective Data Vital Signs Vital Signs: Vital Signs - 24 hr 12/27/21 14:00 12/27/21 21:34 12/27/21 20:01 Temperature 98.0 F 98.4 F Pulse Rate 70 68 Respiratory Rate 16 16 Blood Pressure 138/52 L 146/50 H Pulse Oximetry 95 97 Oxygen Delivery Room Air 12/28/21 05:29 12/28/21 09:22 12/28/21 08:00 Temperature 97.8 F Pulse Rate 79 74 Respiratory Rate 16 Blood Pressure 151/66 H Pulse Oximetry 93 Oxygen Delivery Room Air Intake/Output Intake/Output: Intake & Output 12/25/21 12/26/21 12/27/21 12/28/21 23:59 23:59 23:59 23:59 Intake Total 1570 1700 1140 990 Output Total 750 2050 1800 400 Balance 820 350 -548 590 Meds/Results Medications: Active Medications Generic Name Dose Route Start Last Admin Trade Name Freq PRN Reason Stop Dose Admin Acetaminophen 650 mg 12/25/21 00:36 12/28/21 09:15 Acetaminophen 325 Mg Tablet PO 650 mg Q4H PRN Administration Mild Pain (1-3) or Fever Hydrocodone Bitart/Acetaminophen 1 tab 12/25/21 00:36 12/27/21 04:37 Hydrocodone/Acetaminophen (*Crx) 7.5-325 Mg Tablet PO 1 tab Q6H PRN Administration Pain Rated 4-6 Al Hydrox/Mg Hydrox/Simethicone 30 ml 12/25/21 00:36 Mag Hydrox/Al Hydrox/Simeth 30 Ml Udc PO QID PRN Dyspepsia Alfuzosin HCl 10 mg 12/25/21 09:00 12/28/21 09:16 Alfuzosin 10 Mg Er Tablet PO 10 mg DAILY ADRIENNE Administration Amlodipine Besylate 5 mg 12/25/21 09:00 12/28/21 09:17 Amlodipine Besylate 5 Mg Tablet PO 5 mg DAILY ADRIENNE Administration Atorvastatin Calcium 20 mg 12/25/21 09:00 12/28/21 09:17 Atorvastatin 20 Mg Tablet PO 20 mg DAILY ADRIENNE Administration Bumetanide 1 mg 12/25/21 00:36 Bumetanide 1 Mg T
[2021-12-28 14:00] VITALS: BP 121/67; PULSE 62; RESP 15; TEMP 36.6; O2SAT 96
--- NOTE | 2021-12-28 18:11 | WPDNEUROSGPN ---
Progress Note: A&P Assessment and Plan (1) Chronic leg pain: Code(s): M79.606 - Pain in leg, unspecified; G89.29 - Other chronic pain Status: Acute (2) Chronic back pain: Code(s): M54.9 - Dorsalgia, unspecified; G89.29 - Other chronic pain Status: Acute (3) Lumbar stenosis: Code(s): M48.061 - Spinal stenosis, lumbar region without neurogenic claudication Status: Acute Plan Mr. Mckeon has stenosis which is moderately severe in his lumbar spine at L1-2 above previous operations. I have recommended laminectomy at that level at the same time that we do the dorsal column stimulator. I cannot get his surgery done before it is planned time on the which is a week from tomorrow. I also do not believe that it is urgent enough to do as an emergency. I will therefore having discharge from the hospital follow-up at his surgery time on the and will perform a placement of dorsal column stimulator and L1-2 laminectomy. He may be discharged if he can empty his bladder after his Hull is removed. This will likely be in the morning. Subjective Date/time seen: 12/28/21 18:11 Mr. Mckeon is doing better. He is making transfers independently walking in the room. He still has Hull catheter in place. He does not report specific muscle group weakness or dermatomal numbness. He is not having bowel difficulty. He states that he is having more difficulty walking than he used to have and that this is because of diffuse weakness in his legs. However, he is independently ambulatory. Exam Neuro: Other: Strength is slightly diminished proximally in the bilateral lower extremities but otherwise is normal and symmetric in the bilateral lower extremities. Sensation was intact to light touch in lower extremities with a slight stocking distribution diminished in light touch. He was able to make transfers independently. Objective Data Vital Signs Vital Signs: Vital Signs - 24 hr 12/27/21 21:34 12/27/21 20:01 12/28/21 05:29 Temperature 98.4 F 97.8 F Pulse Rate 68 79 Respiratory Rate 16 16 Blood Pressure 146/50 H 151/66 H Pulse Oximetry 97 93 Oxygen Delivery Room Air 12/28/21 09:22 12/28/21 08:00 12/28/21 11:45 Temperature Pulse Rate 74 Respiratory Rate Blood Pressure Pulse Oximetry Oxygen Delivery Room Air Room Air 12/28/21 14:00 12/28/21 15:13 Temperature 97.9 F Pulse Rate 62 Respiratory Rate 15 Blood Pressure 121/67 Pulse Oximetry 96 Oxygen Delivery Room Air Intake/Output Intake/Output: Intake & Output 12/25/21 12/26/21 12/27/21 12/28/21 23:59 23:59 23:59 23:59 Intake Total 1570 1700 1140 1770 Output Total 750 2050 1800 950 Balance 820 -350 -660 820 Meds/Results Medications: Active Medications Generic Name Dose Route Start Last Admin Trade Name Freq PRN Reason Stop Dose Admin Acetaminophen 650 mg 12/25/21 00:36 12/28/21 09:15 Acetaminophen 325 Mg Tablet PO 650 mg Q4H PRN Administration Mild Pain (1-3) or Fever Hydrocodone Bitart/Acetaminophen 1 tab 12/25/21 00:36 12/27/21 04:37 Hydrocodone/Acetaminophen (*Crx) 7.5-325 Mg Tablet PO 1 tab Q6H PRN Administration Pain Rated 4-6 Al Hydrox/Mg Hydrox/Simethicone 30 ml 12/25/21 00:36 Mag Hydrox/Al Hydrox/Simeth 30 Ml Udc PO QID PRN Dyspepsia Alfuzosin HCl 10 mg 12/25/21 09:00 12/28/21 09:16 Alfuzosin 10 Mg Er Tablet PO 10 mg DAILY ADRIENNE Administration Amlodipine Besylate 5 mg 12/25/21 09:00 12/28/21 09:17 Amlodipine Besylate 5 Mg Tablet PO 5 mg DAILY ADRIENNE Administration Atorvastatin Calcium 20 mg 12/25/21 09:00 12/28/21 09:17 Atorvastatin 20 Mg Tablet PO 20 mg DAILY ADRIENNE Administration Bumetanide 1 mg 12/25/21 00:36 Bumetanide 1 Mg Tablet PO DAILY PRN Edema Enoxaparin Sodium 40 mg 12/25/21 09:00 12/28/21 09:17 Enoxaparin 40 Mg/0.4 Ml Syringe SUB-Q 40 mg DAILY ADRIENNE Administration
[2021-12-28 21:44] VITALS: BP 111/62; PULSE 61; RESP 18; TEMP 36.7; O2SAT 96
[2021-12-29 05:38] VITALS: BP 138/61; PULSE 66; RESP 17; TEMP 36.9; O2SAT 95
[2021-12-29] MEDS: POTASSIUM CITRATE 5 MEQ TAB CR 10 MEQ PO (09:30)
[2021-12-29] MEDS: lisinopriL 20 MG TABLET 40 MG PO (09:31)
[2021-12-29 09:32] VITALS: PULSE 64
[2021-12-29] MEDS: FOLIC ACID 1 MG TABLET PO (09:32)
[2021-12-29] MEDS: METOPROLOL SUCCINATE EXT REL 25 MG TABCR PO (09:32)
[2021-12-29] MEDS: FINASTERIDE 5 MG TABLET PO (09:33)
[2021-12-29] MEDS: amLODIPine BESYLATE 5 MG TABLET PO (09:33)
[2021-12-29] MEDS: PRAMIPEXOLE 0.5 MG TABLET PO (09:33)
[2021-12-29] MEDS: ATORVASTATIN 20 MG TABLET PO (09:33)
[2021-12-29] MEDS: ENOXAPARIN 40 MG/0.4 ML SYRINGE SUB-Q (09:34)
--- NOTE | 2021-12-29 12:20 | PM.IMPN ---
Subjective Date/time seen: 12/29/21 12:20 Objective Data Vital Signs Vital Signs: Vital Signs - 24 hr 12/28/21 14:00 12/28/21 15:13 12/28/21 21:44 Temperature 97.9 F 98.0 F Pulse Rate 62 61 Respiratory Rate 15 18 Blood Pressure 121/67 111/62 Pulse Oximetry 96 96 Oxygen Delivery Room Air 12/28/21 20:00 12/29/21 05:38 12/29/21 09:32 Temperature 98.4 F Pulse Rate 66 64 Respiratory Rate 17 Blood Pressure 138/61 Pulse Oximetry 95 Oxygen Delivery Room Air 12/29/21 09:30 Temperature Pulse Rate Respiratory Rate Blood Pressure Pulse Oximetry Oxygen Delivery Room Air Intake/Output Intake/Output: Intake & Output 12/26/21 12/27/21 12/28/21 12/29/21 23:59 23:59 23:59 23:59 Intake Total 1700 1140 1770 480 Output Total 2050 1800 950 940 Balance -350 -660 820 -460 Meds/Results Medications: Active Medications Generic Name Dose Route Start Last Admin Trade Name Freq PRN Reason Stop Dose Admin Acetaminophen 650 mg 12/25/21 00:36 12/28/21 09:15 Acetaminophen 325 Mg Tablet PO 650 mg Q4H PRN Administration Mild Pain (1-3) or Fever Hydrocodone Bitart/Acetaminophen 1 tab 12/25/21 00:36 12/27/21 04:37 Hydrocodone/Acetaminophen (*Crx) 7.5-325 Mg Tablet PO 1 tab Q6H PRN Administration Pain Rated 4-6 Al Hydrox/Mg Hydrox/Simethicone 30 ml 12/25/21 00:36 Mag Hydrox/Al Hydrox/Simeth 30 Ml Udc PO QID PRN Dyspepsia Alfuzosin HCl 10 mg 12/25/21 09:00 12/29/21 09:32 Alfuzosin 10 Mg Er Tablet PO 10 mg DAILY ADRIENNE Administration Amlodipine Besylate 5 mg 12/25/21 09:00 12/29/21 09:33 Amlodipine Besylate 5 Mg Tablet PO 5 mg DAILY ADRIENNE Administration Atorvastatin Calcium 20 mg 12/25/21 09:00 12/29/21 09:33 Atorvastatin 20 Mg Tablet PO 20 mg DAILY ADRIENNE Administration Bumetanide 1 mg 12/25/21 00:36 Bumetanide 1 Mg Tablet PO DAILY PRN Edema Enoxaparin Sodium 40 mg 12/25/21 09:00 12/29/21 09:34 Enoxaparin 40 Mg/0.4 Ml Syringe SUB-Q 40 mg DAILY ADRIENNE Administration Finasteride 5 mg 12/25/21 09:00 12/29/21 09:33 Finasteride 5 Mg Tablet PO 5 mg DAILY ADRIENNE Administration Folic Acid 1 mg 12/25/21 09:00 12/29/21 09:32 Folic Acid 1 Mg Tablet PO 1 mg DAILY ADRIENNE Administration Lisinopril 40 mg 12/25/21 09:00 12/29/21 09:31 Lisinopril 20 Mg Tablet PO 40 mg DAILY ADRIENNE Administration Magnesium Hydroxide 30 ml 12/25/21 00:36 Magnesium Hydroxide Susp 30 Ml Udc PO DAILY PRN Constipation Metoprolol Succinate 25 mg 12/25/21 09:00 12/29/21 09:32 Metoprolol Succinate Ext Rel 25 Mg Tabcr PO 25 mg DAILY ADRIENNE Administration Ondansetron HCl 4 mg 12/25/21 00:36 Ondansetron Inj 4 Mg/2 Ml Vial IV PUSH Q6H PRN Nausea And Vomiting Potassium Citrate 10 meq 12/25/21 09:00 12/29/21 09:30 Potassium Citrate 5 Meq Tab Cr PO 10 meq DAILY ADRIENNE Administration Pramipexole Dihydrochloride 0.5 mg 12/25/21 09:00 12/29/21 09:33 Pramipexole 0.5 Mg Tablet PO 0.5 mg BID ADRIENNE Administration Radiology Results: ITS Impressions Chest X-Ray 12/25/21 12:14 IMPRESSION: Cardiomegaly, aortic atherosclerosis No active pulmonary disease Bilateral hyperinflation, suggesting possible COPD. The elderly chest however considerably this appearance. Thoracolumbar Spine 12/26/21 09:55 IMPRESSION: 1. Severe lumbar spondylosis and moderate thoracic spondylosis. Lumbar Spine MRI 12/26/21 13:45 IMPRESSION: 1. Severe lumbar spondylosis.
[2021-12-29 14:00] VITALS: BP 115/84; PULSE 67; RESP 20; TEMP 36.1; O2SAT 96
--- OUTSIDE RECORDS SUMMARY | 2021-12-30 14:09 | XMS_ITS | CCD ---
[...] Code Procedure Type Date INJECT SACROILIAC JOINT 38824 CPT 01/25/20 Introduction of Anti-inflammatory into [id number] ICD-10 PC S 01/24/2021 Peripheral Nerves and [...]
--- OUTSIDE RECORDS SUMMARY | 2021-12-30 14:10 | XMS_ITS | CCD ---
[...] Code Procedure Type Date CHEST [id number] 07/07/2021 History of Immunizations Immunization [...]
--- OUTSIDE RECORDS SUMMARY | 2021-12-30 14:10 | XMS_ITS | CCD ---
[...] Code Procedure Type Date CHEST [id number] 06/15/2021 History of Immunizations Immunization [...]
--- OUTSIDE RECORDS SUMMARY | 2021-12-30 14:11 | XMS_ITS | CCD ---
[...] Date PRP I/YAMILE INIT REDUC >5 YR 01969 CPT 06/15 ANESTH REPAIR OF HERNIA 21304 CPT 07/09/19 22 Supplement Right Inguinal Region with Synthetic [id number] ICD-10 PCS 07/08/2021 Substitute, Open Approach History of Immunizations Immunization Code Date Hep A, adult
--- OUTSIDE RECORDS SUMMARY | 2021-12-30 14:11 | XMS_ITS | CCD ---
[...] Code Procedure Type Date CBC W DIFF [id number] SNOMED CT 07/26/2021 COMPREHENSIVE METABOLIC PANEL [id number] SNOMED CT CULTURE BLOOD-PERIPHERAL [id number] SNOMED CT 022 CULTURE BLOOD-PERIPHERAL [id number] [facility] CT 022
--- OUTSIDE RECORDS SUMMARY | 2021-12-30 14:12 | XMS_ITS | CCD ---
[...] Code Procedure Type Date CBC W DIFF [id number] SNOMED CT 11/27/2021 COMPREHENSIVE METABOLIC PANEL [id number] SNOMED CT CULTURE BLOOD-PERIPHERAL [id number] SNOMED CT 022 CULTURE BLOOD-PERIPHERAL [id number] SNOMED CT 022 History of Immunizations Immunization [...]
--- OUTSIDE RECORDS SUMMARY | 2021-12-30 14:13 | XMS_ITS | CCD ---
:1940 Author Care Team Providers Name Role Phone CODY USTTON Attending Physician Unavailable CODY SUTTON (Secondary) Physician [...]
--- NOTE | 2022-01-02 19:20 | PM.DS ---
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 chronic back pain, neurogenic claudication, patient presents to outside hospital due to worsening bilateral lower extremity weakness patient is now unable to get up from sitting position and unable to ambulate due to bilateral lower extremity weakness, with tingling, and pain radiating bilaterally down to his feet,? patient has been having problems also with? voiding urine trouble initiating? stream. PATIENT HAD ALREADY SCHEDULE APPOINTMENT FOR FOLLOW-UP WITH HIS NEUROSURGEON. preliminary workup has been essentially nonrevealing chemistry panel and complete blood count. has been transferred to our facility for further evaluation management and treatment. Hospital Course: patient continue to complain of low back pain,? MRI of lumbar spine showed severe lumbar spondylosis,? patient does have control over bowel and does complain of weakness in the lower extremity patient be seen by spine surgeon and further recommendation to follow. patient was seen by Spine surgeon and recommended laminectomy and the same time placed dorsal column stimulator which is scheduled for January 05, patient is clinically will discharge patient today Time Spent with Patient Time attestation: Total time spent providing and/or coordinating discharge services: Exam Narrative: moderately obese Patient is comfortable, NAD HEENT: eyes are clear and none icteric LUNGS: normal respiratory effort ABD: distended Lower extremities: no edema SKIN: nonjaundiced Neuro: grossly intact. Discharge Plan Discharge Attending physician on discharge: Jamir Lawler Consulting providers: Dean Jarvis MD ; Feng Mckinley ; Thuan Randle ; Sina Sanchez ; Lemuel Gudino V. Discharging Clinician: Jamir Lawler Patient Disposition: Home Health Service Discharge Instructions: Per Care Coordination: [facility] has been arranged to follow at discharge. [facility] will follow for RN and PT/OT eval and treat. [facility] will contact you prior to their first visit. [facility] can be contacted at [phone]. Nursing please fax discharge instructions to [phone]. Patient to follow up with Dr. Mckinley spine surgeon as scheduled, patient to follow up his primary care provider as soon as possible, patient is instructed if does not have control over his bowl and bladder and numbness in his groin area, he must call 911 and go to nearest ER. Patient Instructions: Antibiotic Form, Pain Management (DC), Neurogenic Bladder (GEN) Stand Alone Forms: General Discharge Information Follow-up/Referrals: PHYSICIAN NOT ON STAFF,NONSTAFF [Primary Care Provider] - Feng Mckinley MD [Physician] - Discharge Medications: New alum-mag hydr
== END 2021-12-29 14:20 | disposition home health service (06) | DRG 552 ==
PROVIDERS: Admitting Provider Internal Medicine; Visit Provider Family Medicine
DX: M48.062 Spinal stenosis, lumbar region with neurogenic claudication (principal); M47.816 Spondylosis without myelopathy or radiculopathy, lumbar region; I11.0 Hypertensive heart disease with heart failure; R33.9 Retention of urine, unspecified; I50.9 Heart failure, unspecified; Z87.891 Personal history of nicotine dependence; Z96.82 Presence of neurostimulator
CPT/HCPCS: 36415; 71046; 72080; 72148; 80048; 85025; 97116; 97162; 97166; 97530; A9270; J1650

== ENCOUNTER 2022-01-06 14:23 | Observation (INO) | payer MEDICARE, SELFPAY ==
--- NOTE | 2022-01-02 15:17 | PC.NURSE ---
Report to the Outpatient Waiting Room, entrance under the green pavilion located off [facility], at time __0600 on date __01/05/22 . OR Time: _729 . Time changes happen often and if your time is changed the preop area will call you the afternoon before. - You and your visitor will be asked to self-screen and do not enter if you have any COVID symptoms. - Only one visitor and NO children visitors are allowed at this time. - The patient visitor is requested to leave or wait in car when not with patient due to restrictions. - A mask is required within the hospital. Patients may have clear liquids (water, carbonated beverages, clear teas, apple juice) until 3 hours prior to surgery with a maximum of 20 ounces. - No food from midnight until time of surgery - Infants may have breast milk until 4 hours before surgery, formula 6 hours prior to surgery. - Children will be allowed to drink immediately following surgery. If applicable, please bring a bottle or sippy cup to assist with drinking. Juice, water, soda, and popsicles are readily available. For infants on formula, please bring formula the day of surgery. Pacifiers are allowed. Take the following medications with a SIP of water the morning of surgery: _AMLODIPINE,METOPROLOL Medications to discontinue per physician ____ALL VITAMINS AND SUPPLEMENTS 3 DAYS PRE OP Date to take last dose___01/01/22 Please no make-up, nail stateless, hairspray, perfume, deodorant, or body powder the day of surgery. No jewelry (including any body piercings) or valuables the day of surgery, leave them at home. Please take a shower or bath the night before, or the morning of, surgery with an antibacterial soap. Wear comfortable, loose fitting clothing. Children are encouraged to wear pajamas. - Jewelry must be removed prior to entering the operating room. Rings and piercings that are not removed may be cut off. - The hospital will not accept responsibility for valuables. - Please leave all valuables, including medications, at home the day of surgery. If you are going home after surgery, a licensed delivery driver/customer service must drive you home. - NO public transportation without another adult. - We recommend that an adult stay with you for 24 hours following discharge. - We also recommend that you do not drive, make important decision, drink alcoholic beverages, or take any drugs that were not prescribed by your health care provider for at least 24 hours after your discharge time. For Pediatric surgeries, we recommend two adults accompany the child home (only one inside the building at this time). Follow any additional instructions given to you from your surgeon. If you or anyone in your household have experienced Covid symptoms in the past week, please notify your surgeon or the nurse liaison at the phone number below for possible testing. Telephone instructions given to ___PATIENT and asked if any additional questions and then verbalized understanding. Patient advised to call surgeon office or pre surgery nurse liaison [phone] if any additional questions.
[2022-01-02 15:25] VITALS: BMI 33.9
--- NOTE | 2022-01-04 13:30 | WPDANESEPPF ---
Anes - Initial Pre Proc Eval Procedure: Operation Date: 01/05/22 07:30 Proposed Procedures p Placement of Dorsal Column Stimulator - Feng Mckinley MD Date/Time: 01/04/22 13:30 Surgeon: Feng Mckinley MD Pre Op Diagnosis: Chronic Back and Bilateral Legs Patient Data Age: 81 Gender: M Height: 1.68 m Weight: 95.35 kg Allergies Allergy/AdvReac Type Severity Reaction Status Date / Time No Known Drug Allergies AdvReac none Verified 01/05/22 06:46 Home Medications Medication Instructions Recorded Confirmed Type alfuzosin 10 mg tablet,extended 10 mg PO DAILY 10/24/21 01/02/22 History release 24 hr amlodipine 5 mg tablet 5 mg PO DAILY 10/24/21 01/05/22 History atorvastatin 20 mg tablet 20 mg PO DAILY 10/24/21 01/02/22 History finasteride 5 mg tablet 5 mg PO DAILY 10/24/21 01/02/22 History folic acid 1 mg tablet 1 mg PO DAILY 10/24/21 01/02/22 History hydrocodone 7.5 mg-acetaminophen 1 tablet PO Q6H PRN Pain 10/24/21 01/02/22 History 300 mg tablet potassium citrate 10 mEq (1,080 10 meq PO DAILY 10/24/21 01/02/22 History mg) tablet,extended release pramipexole 0.5 mg tablet 0.5 mg PO BID 10/24/21 01/02/22 History bumetanide 1 mg tablet 1 mg PO PRN PRN Edema 12/24/21 01/02/22 History lisinopril 20 mg tablet 40 mg PO DAILY 12/24/21 01/02/22 History metoprolol succinate 25 mg 25 mg PO DAILY 12/24/21 01/05/22 History tablet,extended release 24 hr aluminum-mag hydroxide-simethicone 30 ml PO QID PRN Dyspepsia #360 mL 12/29/21 01/02/22 Rx 200 mg-200 mg-20 mg/5 mL oral susp (Mag-Al Plus) multivitamin 1 tablet PO DAILY 01/02/22 01/02/22 History Patient hx anesthesia problems: none Family hx anesthesia problems: none Results Review: All pre-operative results and documents have been reviewed as part of the pre-operative evaluation. [facility] Past Medical History Medical History (Updated 01/04/22 @ 13:31 by Luis Sibley MD) Arthritis Cataract Chronic narcotic use Congestive heart disease Gait disturbance Hyperlipidemia Hypertension Leg weakness Lumbar stenosis Neurogenic claudication Urinary retention Weakness of both lower extremities Surgical History Surgical History H/O vasectomy Family History Family History Mother Cancer Father Emphysema lung Social History Social History Smoking packs per day: 3 Smoking cigarettes per day: 60.0 Years smoked: 24 Smoking pack-years: 72.00 Smoking status: Former smoker Tobacco type: cigarettes Smoking end date: 04/16/83 Alcohol intake: current Drinks per week: 14 Alcohol use details: BEER Substance use: never Substance use type: does not use Living arrangements: with family Spiritual care concerns: No Anes - Eval Final PreProcedure Day of Procedure 01/04/22 13:30 Patient weight: obese Heart: regular rate and rhythm Lungs: clear to auscultation and normal air movement Airway: Mallampati scale class II Neurological: alert and oriented Last oral intake: >/= 8 hours ASA classification: IV Emergent: no Anesthetic plan: proceed Anesthesia type and monitoring: general ETT Results Review: All pre-operative results and documents have been reviewed as part of the pre-operative evaluation. Informed Consent: The patient's anesthetic plan and its attendant risks and benefits were discussed with the patient/family/POA. Questions were solicited and answers provided to the satisfaction of the patient/family/POA.
[2022-01-05] VITALS (12 sets, daily range): BP systolic 104–162; BP diastolic 45–71; PULSE 52–96; RESP 10–20; TEMP 35.9–37.1; O2SAT 91–100
--- NOTE | 2022-01-05 05:57 | ECG_ITS ---
Measurements Intervals Rhodelia Rate: 52 P: 61 MA: 157 QRS: -6 QRSD: 80 T: 2 QT: 421 QTc: 394 Interpretive Statements SINUS BRADYCARDIA WITH SINUS ARRHYTHMIA ANTERIOR INFARCT, AGE INDETERMINATE CONSIDER INFERIOR INFARCT, AGE INDETERMINATE BASELINE ARTIFACT- I, II, III, AVR, AVL, AVF, V1-V6 ABNORMAL ECG NO PREVIOUS ECG AVAILABLE FOR COMPARISON Electronically Signed On 01-05-2022 8:01:32 CDT by Isaias Salcido D.O.
[2022-01-05] MEDS: LACTATED RINGERS 1,000 ML 30 ML IV CONT (06:40)
--- NOTE | 2022-01-05 07:35 | WPDHPUPDATE1 ---
History and Physical Update Update Date/Time: 01/05/22 07:35 History and Physical has been reviewed, including an updated exam of the patient. There are NO changes in the patient's condition. Risks, benefits, and alternatives have been discussed and questions answered. Patient agrees to proceed with procedure.
--- NOTE | 2022-01-05 07:35 | PM.IMHP ---
H&P: HPI History of Present Illness Date/Time: 01/05/22 07:35 Chief Complaint: Back and leg pain Narrative: Sina is an 81-year-old gentleman with chronic back and leg pain responded to a dorsal column stimulator trial. He presents now for placement of a dorsal column stimulator lead and generator. He has not changed appreciably since I last saw him in the hospital. He is not walking well but has no specific muscle group weakness or dermatomal numbness. He does have some stocking distribution numbness. Review of Systems Review of Systems: Patient denies shortness of breath, cough, fever, chills, nausea, vomiting, chest pain. [facility] Past Medical History Medical History Arthritis Cataract Chronic narcotic use Congestive heart disease Gait disturbance Hyperlipidemia Hypertension Leg weakness Lumbar stenosis Neurogenic claudication Urinary retention Weakness of both lower extremities Surgical History Surgical History H/O vasectomy Family History Family History Mother Cancer Father Emphysema lung Social History Social History Smoking packs per day: 3 Smoking cigarettes per day: 60.0 Years smoked: 24 Smoking pack-years: 72.00 Smoking status: Former smoker Tobacco type: cigarettes Smoking end date: 04/16/83 Alcohol intake: current Drinks per week: 14 Alcohol use details: BEER Substance use: never Substance use type: does not use Living arrangements: with family Spiritual care concerns: No Meds Home Medications and Allergies Home Medications Medication Instructions Recorded Confirmed Type alfuzosin 10 mg tablet,extended 10 mg PO DAILY 10/24/21 01/05/22 History release 24 hr amlodipine 5 mg tablet 5 mg PO DAILY 10/24/21 01/05/22 History atorvastatin 20 mg tablet 20 mg PO DAILY 10/24/21 01/05/22 History finasteride 5 mg tablet 5 mg PO DAILY 10/24/21 01/05/22 History folic acid 1 mg tablet 1 mg PO DAILY 10/24/21 01/02/22 History hydrocodone 7.5 mg-acetaminophen 1 tablet PO Q6H PRN Pain 10/24/21 01/02/22 History 300 mg tablet potassium citrate 10 mEq (1,080 10 meq PO DAILY 10/24/21 01/05/22 History mg) tablet,extended release pramipexole 0.5 mg tablet 0.5 mg PO BID 10/24/21 01/02/22 History bumetanide 1 mg tablet 1 mg PO PRN PRN Edema 12/24/21 01/05/22 History lisinopril 20 mg tablet 40 mg PO DAILY 12/24/21 01/05/22 History metoprolol succinate 25 mg 25 mg PO DAILY 12/24/21 01/05/22 History tablet,extended release 24 hr aluminum-mag hydroxide-simethicone 30 ml PO QID PRN Dyspepsia #360 mL 12/29/21 01/02/22 Rx 200 mg-200 mg-20 mg/5 mL oral susp (Mag-Al Plus) multivitamin 1 tablet PO DAILY 01/02/22 01/05/22 History Allergies Allergy/AdvReac Type Severity Reaction Status Date / Time No Known Drug Allergies AdvReac none Verified 01/05/22 06:46 Vital Signs Vital Signs - 24 hr 01/05/22 07:29 Temperature 96.7 F L Pulse Rate 52 L Respiratory Rate 16 Blood Pressure 162/60 H Pulse Oximetry 98 Oxygen Delivery Room Air Exam Neuro: Other: Strength is normal in the bilateral lower extremities to direct confrontation. Sensation is slightly decreased in a stocking distribution in both legs. Clear to auscultation Regular rate and rhythm Assessment and Plan Assessment and plan (1) Chronic back pain: Code(s): M54.9 - Dorsalgia, unspecified; G89.29 - Other chronic pain Status: Acute (2) Chronic leg pain: Code(s): M79.606 - Pain in leg, unspecified; G89.29 - Other chronic pain Status: Acute Plan Sina is an 81-year-old gentleman who presents for dorsal column stimulator lead and generator placement. I again described to him that operation, its risks, potential benefits, the operati
[2022-01-05] MEDS: ceFAZolin 2 GM/D5W 50 ML 2 GM/50 ML BAG IVPB (08:15)
[2022-01-05] MEDS: VANCOMYCIN HCL 1,000 MG VIAL 1000 MG TOPICAL (08:39)
[2022-01-05] MEDS: LIDO 1%/EPINEPHRINE 1:100,000 50 ML VIAL 10 ML INFILTRATE (08:39)
--- NOTE | 2022-01-05 09:31 | W.PM.PROC2 ---
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 Description of Procedure The patient was brought to the operating room in the supine position, was sedated, intubated and placed under general anesthesia in routine fashion. He was then turned into the prone position on a Mukund frame. The area of operation on his back was examined, marked for incision, prepped and draped in routine sterile fashion. Incision was marked longitudinally in the midline based on the T10 pedicles and transversely in the left flank. These areas were injected with 0.5% lidocaine with [id number] epinephrine. Intravenous antibiotics given prior to incision. Incision was made with a 10 blade scalpel down to the lumbodorsal fascia. A subperiosteal dissection of the muscle soft tissue away from spinous process and lamina at T9-10 was performed with a subperiosteal elevator and Bovie cautery. A verifying x-rays obtained to verify the level of operation. A laminectomy was performed using Kerrison punches curved curettes and a Leksell rongeur until a short wide area of dura was uncovered. The dorsal epidural space was cannulated with a lead trial. The lead was then placed into the dorsal epidural space until it was confirmed to be behind the T8 and T9 vertebral bodies in the midline. At the flank a pocket was created 1 cm deep in the tissue using curved Gee scissors and toothed forceps. Bleeding was stopped with bipolar cautery. Passer was used to pass the lead wires from the thoracic incision to the flank incision. Here they were inserted into the generator slots and secured there using the small screwdriver for that purpose. Both incisions were copiously irrigated with bacitracin irrigation all bleeding stopped with bipolar and Bovie cautery and Gelfoam thrombin powder. The generator was then placed in the pocket with excess wire coiled up underneath that and with vancomycin impregnated pellets. The rest of the pellets were spread between the areas above and below the fascia the thoracic incision. The wounds were then closed in layered fashion with 2-0 Vicryl interrupted sutures in the thoracic fascia and Idalmis's layer. Both incisions were closed with 3-0 Vicryl buried interrupted sutures in the dermis and a running 4-0 Monocryl subcuticular stitch in the skin and were dressed with Dermabond and a Telfa and Tegaderm dressing. The patient was then allowed to wake up in the operating room was taken to the recovery room in stable condition. There were no immediate complications of this operation. All counts were reported correct at the end of the case. Blood loss was 25 cc. The patient was neurologically at his baseline postoperatively. Implants Fuller dorsal column stimulator lead and generator Estimated Blood Loss 25 IV Fluids 1,000 Complications None Condition Stable Disposition PACU
--- NOTE | 2022-01-05 11:10 | ADMGEN ---
This patient, Sina Mckeon, was admitted to Medical Room 247-. Patient/family oriented to hospital policies and general routines including ID bracelet, bed and alarms, visiting hours, pain management, procedures, bathroom and other care routines, personal items, smoking policy, room service/diet, and visiting hours. Information on how to activate the Rapid Response Team has been discussed. Patient/Family are encouraged to report perceived risks to care and to ask questions if they do not understand what they are told or what they should do. Report received from Jorge RIGGS
[2022-01-05] MEDS: KCL 20 MEQ/D5/0.45% SOD CHL 1,000 ML 100 ML IV CONT (11:47)
[2022-01-05] MEDS: ATORVASTATIN 20 MG TABLET PO (12:12)
[2022-01-05] MEDS: FINASTERIDE 5 MG TABLET PO (12:12)
[2022-01-05] MEDS: POTASSIUM CITRATE 5 MEQ TAB CR 10 MEQ PO (12:12)
[2022-01-05] MEDS: MULTIVITAMINS THERAPEUTIC TAB (*BKC) 1 TABLET PO (12:12)
[2022-01-05] MEDS: FOLIC ACID 1 MG TABLET PO (12:12)
[2022-01-05] MEDS: PRAMIPEXOLE 0.5 MG TABLET PO (19:29)
[2022-01-05] MEDS: DOCUSATE SODIUM 100 MG CAPSULE PO (20:22)
[2022-01-06] VITALS (7 sets, daily range): BP systolic 119–147; BP diastolic 48–55; PULSE 57–76; RESP 14–18; TEMP 36.6–36.7; O2SAT 97–100
--- NOTE | ~2022-01-06 | XR_ITS ---
XR fluoroscopy no charge 01/05/2022 09:03 Indication: Placement of dorsal column stimulator TECHNIQUE: Fluoroscopy used during placement of dorsal column stimulator device performed by [Dedrick Mckinley MD] on 01/05/2022. Fluoroscopy time is 8 seconds. with 2 fluoroscopic images capture d. ] FINDINGS: Correlate with procedure note. IMPRESSION: Fluoroscopy used during placement of dorsal column stimulator device. Reviewed, dictated and finalized at location A. IMPRESSION: Fluoroscopy used during placement of dorsal column stimulator franchesca rosenberg
[2022-01-06] MEDS: CYCLOBENZAPRINE HCL 10 MG TABLET PO (00:23)
[2022-01-06] MEDS: KCL 20 MEQ/D5/0.45% SOD CHL 1,000 ML 100 ML IV CONT (00:27)
--- NOTE | 2022-01-06 00:39 | PC.NURSE ---
PT UNABLE TO URINATE POST OP. NOTIFIED BY DAY SHIFT NURSE BERNADETTE THAT SHE PREFORMED A STRAIGHT CATH PRIOR TO GIVING REPORT AND SHE HAD VERBAL INSTRUCTIONS FROM [facility] THAT IF THE PT COULD NOT URINATE ON HIS OWN AND HIS BLADDER WAS FULL UPON SCANNING TO PLACE A TRAYLOR. ENCOURAGED FLUIDS AND CONTINUOUSLY CHECKED ON PT ASKING IF HE NEEDED TO URINATE AND AFTER MULTIPLE FAILED ATTEMPTS I PLACED A TRAYLOR AFTER SCANNING 572ML OF URINE IN PT BLADDER. TRAYLOR WAS WELL TOLERATED AND DRAINING KARON URINE. PT APPEARS TO BE MORE COMFORTABLE AND LESS ANXIOUS.
[2022-01-06] MEDS: ATORVASTATIN 20 MG TABLET PO (08:09)
[2022-01-06] MEDS: POTASSIUM CITRATE 5 MEQ TAB CR 10 MEQ PO (08:09)
[2022-01-06] MEDS: lisinopriL 20 MG TABLET 40 MG PO (08:11)
[2022-01-06] MEDS: MULTIVITAMINS THERAPEUTIC TAB (*BKC) 1 TABLET PO (08:11)
[2022-01-06] MEDS: FINASTERIDE 5 MG TABLET PO (08:12)
[2022-01-06] MEDS: METOPROLOL SUCCINATE EXT REL 25 MG TABCR PO (08:12)
[2022-01-06] MEDS: PRAMIPEXOLE 0.5 MG TABLET PO ×2 (08:12→17:29)
[2022-01-06] MEDS: amLODIPine BESYLATE 5 MG TABLET PO (08:14)
[2022-01-06] MEDS: FOLIC ACID 1 MG TABLET PO (08:14)
[2022-01-06] MEDS: DOCUSATE SODIUM 100 MG CAPSULE PO ×2 (08:17→20:40)
--- NOTE | 2022-01-06 09:14 | PCPTNOTE ---
Attempted to see patient for PT at this time, however patient reported he was still eating his breakfast.
--- NOTE | 2022-01-06 11:32 | WPDANESPN ---
Anes - Prog Note Post-Op Date/Time: 01/06/22 11:32 Cardiovascular status: normal Respiratory status: normal Airway patency: baseline Mental status: baseline Post-Op hydration status: normal Vital Signs: Last Vital Signs Temp 36.6 C 01/06/22 08:00 Pulse 65 01/06/22 08:13 Resp 14 01/06/22 08:13 BP 128/54 L 01/06/22 08:13 Pulse Ox 100 01/06/22 08:13 O2 Del Method Room Air 01/05/22 20:00 O2 Flow Rate 8 01/05/22 09:35 Pain Score (VAS): 04/25 I/O: Intake & Output 01/05/22 01/06/22 01/06/22 23:59 07:59 15:59 Intake Total 2990 240 Output Total 475 1775 Balance 2515 -1775 240 Post-procedural complaints: none Patient Feedback: Patient satisfied with anesthetic care.
--- NOTE | 2022-01-06 12:24 | WPDNEUROSGPN ---
Progress Note: A&P Assessment and Plan (1) Lumbar stenosis: Code(s): M48.061 - Spinal stenosis, lumbar region without neurogenic claudication Status: Acute Assessment and Plan: The patient is stable overall after a spinal cord stimulator placement. We will perform a voiding trial today. If the patient is not able to void independently and again has urinary retention and a Hull catheter will be placed with urology consultation and follow-up as an outpatient with a voiding trial. If the patient is felt to be stable by Physical and Occupational therapy, consideration will be given for discharge to home tomorrow with outpatient home health physical therapy and nursing follow-up as the patient has requested. My partner Dr. Orta will be rounding and covering for the patient this weekend Subjective Date/time seen: 01/06/22 12:24 The patient did well overnight but did have some urinary retention. A Hull catheter was placed. Physical and occupational therapy have noted some impulsiveness and have question whether the patient is fully safe to discharge to home. They are aware, however, that this is the patient's neurological baseline. The patient is adamant that Exam Narrative: Awake, alert, oriented x3 Speech CF KEE EOMI Face= TML MAEW with good strength Dressing CDI Objective Data Vital Signs Vital Signs: Vital Signs - 24 hr 01/05/22 13:55 01/05/22 15:05 01/05/22 19:22 Temperature 97.6 F 98.8 F Pulse Rate 96 79 Respiratory Rate 16 18 Blood Pressure 104/57 L 106/71 Pulse Oximetry 96 97 Oxygen Delivery Room Air 01/05/22 20:00 01/05/22 22:59 01/06/22 03:31 Temperature 97.5 F L 97.8 F Pulse Rate 72 63 Respiratory Rate 18 18 Blood Pressure 121/46 L 119/48 L Pulse Oximetry 96 97 Oxygen Delivery Room Air 01/06/22 08:12 01/06/22 08:13 01/06/22 08:00 Temperature 97.8 F Pulse Rate 65 65 76 Respiratory Rate 14 18 Blood Pressure 128/54 L 135/52 L Pulse Oximetry 100 98 Oxygen Delivery 01/06/22 08:00 Temperature Pulse Rate Respiratory Rate Blood Pressure Pulse Oximetry Oxygen Delivery Room Air Intake/Output Intake/Output: Intake & Output 01/03/22 01/04/22 01/05/22 01/06/22 23:59 23:59 23:59 23:59 Intake Total 5080 240 Output Total 519 5342 Balance 5537 -5174 Meds/Results Medications: Active Medications Generic Name Dose Route Start Last Admin Trade Name Freq PRN Reason Stop Dose Admin Hydrocodone Bitart/Acetaminophen 1 tab 01/05/22 10:56 Hydrocodone/Acetaminophen (*Crx) 5-325 Mg Tablet PO Q4H PRN Mild Pain (1-3) Hydrocodone Bitart/Acetaminophen 1 tab 01/05/22 10:56 Hydrocodone/Acetaminophen (*Crx) 10-325 Mg Tablet PO Q4H PRN Moderate Pain (4-6) Al Hydrox/Mg Hydrox/Simethicone 30 ml 01/05/22 10:56 Mag Hydrox/Al Hydrox/Simeth 30 Ml Udc PO QID PRN Dyspepsia Al Hydrox/Mg Hydrox/Simethicone 20 ml 01/05/22 10:56 Mag Hydrox/Al Hydrox/Simeth 30 Ml Udc PO Q4H PRN Indigestion/Heartburn Alfuzosin HCl 10 mg 01/05/22 12:00 01/06/22 08:12 Alfuzosin 10 Mg Er Tablet PO 10 mg DAILY ADRIENNE Administration Amlodipine Besylate 5 mg 01/06/22 09:00 01/06/22 08:14 Amlodipine Besylate 5 Mg Tablet PO 5 mg DAILY ADRIENNE Administration Atorvastatin Calcium 20 mg 01/05/22 12:00 01/06/22 08:09 Atorvastatin 20 Mg Tablet PO 20 mg DAILY ADRIENNE Administration Bisacodyl 10 mg 01/05/22 10:56 Bisacodyl 10 Mg Suppository RECTAL DAILY PRN Constipation Bumetanide 1 mg 01/05/22 12:00 Bumetanide 1 Mg Tablet PO PRN PRN Edema Cyclobenzaprine HCl 10 mg 01/05/22 10:56 01/06/22 00:23 Cyclobenzaprine Hcl 10 Mg Tablet PO 10 mg TID PRN Administration Muscle Spasms Docusate Sodium 100 mg 01/05/22 21:00 01/06/22 08:17 Docusate Sodium 100 Mg Capsule PO 100 mg Q12HR ADRIENNE Administration Finasteride 5 mg 01/05/22 12:00 01/06/22 0
[2022-01-07 02:00] VITALS: BP 142/51; PULSE 60; RESP 16; TEMP 36.4; O2SAT 97
[2022-01-07 06:00] VITALS: BP 159/60; PULSE 60; RESP 20; TEMP 36.7; O2SAT 97
[2022-01-07 08:37] VITALS: PULSE 67
[2022-01-07] MEDS: METOPROLOL SUCCINATE EXT REL 25 MG TABCR PO (08:37)
[2022-01-07] MEDS: POTASSIUM CITRATE 5 MEQ TAB CR 10 MEQ PO (08:37)
[2022-01-07] MEDS: ATORVASTATIN 20 MG TABLET PO (08:37)
[2022-01-07] MEDS: amLODIPine BESYLATE 5 MG TABLET PO (08:38)
[2022-01-07] MEDS: lisinopriL 20 MG TABLET 40 MG PO (08:38)
[2022-01-07] MEDS: FOLIC ACID 1 MG TABLET PO (08:38)
[2022-01-07] MEDS: MULTIVITAMINS THERAPEUTIC TAB (*BKC) 1 TABLET PO (08:39)
[2022-01-07] MEDS: DOCUSATE SODIUM 100 MG CAPSULE PO (08:39)
[2022-01-07] MEDS: PRAMIPEXOLE 0.5 MG TABLET PO (08:39)
[2022-01-07] MEDS: FINASTERIDE 5 MG TABLET PO (08:39)
[2022-01-07 10:00] VITALS: BP 142/61; PULSE 62; RESP 18; TEMP 36.8; O2SAT 98
--- NOTE | 2022-01-28 08:45 | P.DS_ITS ---
DS: Admitting Diagnosis Discharge Date 01/07/22 Admitting Diagnosis Chronic back and leg pain DS: Discharge Diagnosis Discharge Diagnosis (1) Chronic leg pain: Code(s): M79.606 - Pain in leg, unspecified; G89.29 - Other chronic pain Status: Acute (2) Chronic back pain: Code(s): M54.9 - Dorsalgia, unspecified; G89.29 - Other chronic pain Status: Acute Plan Sina is an 81-year-old gentleman with chronic back and leg pain that responded with successful dorsal column stimulator trial and presents now for permanent implantation. DS: Summary Hospital Course Hospital Course: Sina was taken to the operating room on 01/05/2022 for the aforementioned operation was performed without complication. He went to the for postoperatively. By postoperative day to he was eating, ambulating an empty his bladder, and his pain was under control with by mouth pain medicine. His wound remained clean, dry and intact. He was afebrile with stable vital signs. He was therefore allowed to be discharged home. Time Spent with Patient Time attestation: Total time spent providing and/or coordinating discharge services: Discharge Plan Discharge Attending physician on discharge: Feng Mckinley Consulting providers: Vance Rodriguez ; Isaias Salcido Discharging Clinician: Rogers Orta Patient Disposition: Home Health Service Activity: may shower and other - see discharge instructions Diet: as tolerated Wound Care Instructions: remove dressing to shower Discharge Instructions: Per Care Coordination: [facility] will resume services at discharge. [facility] can be contacted at [phone]. Nursing please fax discharge instructions to [phone]. Patient Instructions: Antibiotic Form Stand Alone Forms: General Discharge Information Follow-up/Referrals: Feng Mckinley MD [Physician] - (F/u in clinic with Dr. Mckinley) Discharge Medications: Continued alfuzosin 10 mg tablet extended release 24 hr 10 mg PO DAILY Rx Instructions: administer after the same meal each day amlodipine 5 mg tablet 5 mg PO DAILY atorvastatin 20 mg tablet 20 mg PO DAILY finasteride 5 mg tablet 5 mg PO DAILY folic acid 1 mg tablet 1 mg PO DAILY hydrocodone-acetaminophen 7.5-300 mg tablet 1 tablet PO Q6H PRN (Reason: Pain) Label Comments: pt stated he does not take anymore, just tylenol potassium citrate 10 mEq (1,080 mg) tablet extended release 10 meq PO DAILY pramipexole 0.5 mg tablet 0.5 mg PO BID multivitamin Tablet 1 tablet PO DAILY bumetanide 1 mg tablet 1 mg PO PRN PRN (Reason: Edema) lisinopril 20 mg tablet 40 mg PO DAILY metoprolol succinate 25 mg tablet extended release 24 hr 25 mg PO DAILY alum-mag hydroxide-simeth [Mag-Al Plus] 200-200-20 mg/5 mL Suspension 30 ml PO QID PRN (Reason: Dyspepsia) Qty: 360 0RF Date of admission: 01/06/22 14:23 Primary Care Provider: PHYSICIAN,PASTE MAKER Admitting Provider: Feng Mckinley Attending physician on admission: Rogers Orta Condition: Improved
== END 2022-01-07 11:10 | disposition home health service (06) ==
LOC: ANHSURGERY 15:27 → ANH2MED 01-07 08:10
PROVIDERS: Admitting Provider Neurological Surgery; Visit Provider Neurological Surgery
PROC: (CPT 63685; principal; 2022-01-05 07:30)
DX: M48.061 Spinal stenosis, lumbar region without neurogenic claudication (principal); R33.9 Retention of urine, unspecified; M54.9 Dorsalgia, unspecified; M79.606 Pain in leg, unspecified; G89.29 Other chronic pain; I11.0 Hypertensive heart disease with heart failure; I50.9 Heart failure, unspecified; E78.5 Hyperlipidemia, unspecified; Z87.891 Personal history of nicotine dependence; Z79.891 Long term (current) use of opiate analgesic; E66.9 Obesity, unspecified; Z68.32 Body mass index [BMI] 32.0-32.9, adult
CPT/HCPCS: 63685; 63655; 93005; 97116; 97161; 97166; 97530; 97535; 99199; A9270; G0378; J0690; J1100; J2405; J2704; J2710; J3010; J3370; J3480; J7120